=== PATIENT | female | born 1970 | race Hispanic/Latino ===

== ENCOUNTER 2024-03-09 21:34 | Emergency (ER) | payer OTHER, SELFPAY ==
--- NOTE | ~2024-03-09 | CT_ITS ---
EXAMINATION: CT brain wo con DATE: 03/09/2024 23:22 INDICATION: Head injury. TECHNIQUE: Computed tomography (CT) of the head was performed without intravenous contrast. The mA wa s adjusted according to patient size. Iterative reconstruction technique was employed. The dose-lengt h product was 605.33 mGy-cm. COMPARISON: None FINDINGS: There is no intracranial hemorrhage, acute infarction, or abnormal intracranial mass lesion . The ventricles are normal in size. The orbits are normal. There is mild mucosal thickening in the p aranasal sinuses. The mastoid air cells are normal. IMPRESSION: 1. Normal brain. Reviewed, dictated and finalized at location A. IMPRESSION: 1. Normal brain.
--- NOTE | ~2024-03-09 | CT_ITS ---
EXAMINATION: CT orbit BI wo con DATE: 03/10/2024 01:02 INDICATION: Right eye visual loss. Trauma. TECHNIQUE: Computed tomography (CT) of the orbits was performed without intravenous contrast. Automat ed exposure control and iterative reconstruction technique were employed. The dose-length product was 185.88 mGy-cm. COMPARISON: None FINDINGS: The ocular globes, extraocular muscles, and optic nerves are normal. There is no abnormal o rbital mass. There is mild mucosal thickening in the paranasal sinuses. There is rightward deviation of the nasal septum. The mastoid air cells are normal. There is a fracture deformity of left nasal miquel ne, likely chronic. IMPRESSION: 1. Normal orbits. Reviewed, dictated and finalized at location A. IMPRESSION: 1. Normal orbits.
--- NOTE | ~2024-03-09 | CT_ITS ---
EXAMINATION: CT cervical spine wo con DATE: 03/09/2024 23:23 INDICATION: Neck pain. Fall. TECHNIQUE: Computed tomography (CT) of the cervical spine was performed without intravenous contrast. Automated exposure control and iterative reconstruction technique were employed. The dose-length pro duct was 240.66 mGy-cm. COMPARISON: None FINDINGS: There is 3 degrees levocurvature of cervical spine. Vertebral body heights and intervertebr al disc heights are normal. The following disc levels are specifically discussed: C2-C3: There is mild bilateral uncovertebral joint osteoarthritis. There is moderate right and severe left facet joint osteoarthritis. There is mild left neural foraminal stenosis. There is no central c anal stenosis. C3-C4: There is mild bilateral uncovertebral joint osteoarthritis. There is mild right and severe lef t facet joint osteoarthritis. There is no neural foraminal stenosis. There is mild central canal sten osis. C4-C5: There is no uncovertebral joint osteoarthritis. There is no facet joint osteoarthritis. There is no neural foraminal stenosis. There is no central canal stenosis. C5-C6: There is no uncovertebral joint osteoarthritis. There is severe right facet joint osteoarthrit is. There is no neural foraminal stenosis. There is no central canal stenosis. C6-C7: There is no uncovertebral joint osteoarthritis. There is severe bilateral facet joint osteoart hritis. There is no neural foraminal stenosis. There is no central canal stenosis. C7-T1: There is no uncovertebral joint osteoarthritis. There is severe bilateral facet joint osteoart hritis. There is no neural foraminal stenosis. There is no central canal stenosis. IMPRESSION: 1. No fracture. 2. Mild cervical spondylosis. Reviewed, dictated and finalized at location A.
--- NOTE | ~2024-03-09 | CT_ITS ---
EXAMINATION: CTA brain carotid DATE: 03/10/2024 01:06 INDICATION: Right eye vision loss. Trauma. TECHNIQUE: Computed tomographic angiography (CTA) of the head was performed with 100 mL Omnipaque-350 intravenous contrast. CTA of the neck was performed with intravenous contrast. Automated exposure co ntrol and iterative reconstruction technique were employed. The dose-length product was 991.08 mGy-cm . Maximum intensity projection and volume rendered 3D-reconstructions were created by the [employer] t on a separate workstation. COMPARISON: Head CT 03/09/2024 FINDINGS: HEAD CTA: There is no intracranial hemorrhage, acute infarction, or abnormal intracranial mass lesion . The ventricles are normal in size. There is mild mucosal thickening in the paranasal sinuses. The o rbits are normal. There is a fracture deformity of left nasal bone, likely chronic. The mastoid air c ells are normal. Left vertebral artery is dominant. There is no significant stenosis of basilar arter y or the posterior cerebral arteries. There is no significant stenosis of the intracranial internal c arotid arteries or anterior or middle cerebral arteries. Anterior communicating artery is normal. The posterior communicating arteries are normal. There is no aneurysm. NECK CTA: The lungs demonstrate mild atelectasis. There are no pathologically enlarged lymph nodes. T here is no significant stenosis of the vertebral arteries. There is no significant plaque in the prox imal internal carotid arteries. There is 0% stenosis of the proximal right internal carotid artery re lative to normal distal artery lumen diameter (NASCET criteria). There is 0% stenosis of the proximal left internal carotid artery relative to normal distal artery lumen diameter. Dental disease is note d. There is mild cervical spondylosis. IMPRESSION: 1. Normal brain. No aneurysm or significant intracranial internal stenosis. 2. 0% stenosis of the proximal internal carotid arteries relative to normal distal artery lumen diame ters (NASCET criteria). Reviewed, dictated and finalized at location A. IMPRESSION: 1. Normal brain. No aneurysm or significant intracranial internal stenosis. 2. 0% stenosis of the proximal internal carotid arteries relative to normal dis hiwot artery lumen diameters (NASCET criteria).
[2024-03-09 21:36] VITALS: BP 151/59; PULSE 74; RESP 20; TEMP 36.8; O2SAT 98
--- NOTE | 2024-03-09 23:14 | PC.NURSE ---
care and report given to SAM Metcalf. all questions answered.
--- NOTE | 2024-03-09 23:46 | ED.FALL ---
HPI - Fall General Chief Complaint: Fall Stated Complaint: fall, eye injury Time Seen by Provider: 03/09/24 23:15 History of Present Illness HPI Narrative: Patient presents here after she had a fall when she tripped over a chair, hit the back of her head, and then noticed changes to vision to her right eye. She describes it as the blackness to the top of her field of vision, with reddish curtain through the rest of her vision with floaters. Related Data Allergies Allergy/AdvReac Type Severity Reaction Status Date / Time No Known Allergies Allergy Verified 03/09/24 21:43 Review of Systems Review of Systems: All systems reviewed & are unremarkable except as noted in HPI and below Exam Narrative: EXAMINATION OF ORGAN SYSTEMS/BODY AREAS: Constitutional: Vital signs per nursing GENERAL:[No acute distress, non-toxic appearing.] HEAD: Normal with no signs of head trauma. EYES: EOMI, conjunctiva normal, PERRL. VA left eye 20/50, right eye 20/100. IOP 14 bilaterally ENT: Hearing grossly intact LUNGS: Nonlabored breathing. HEART: [Regular rate and rhythm] ABD: No distension EXT: Normal range of motion SKIN: [No rashes or lesions.] NEURO: [Alert and oriented x 3. No gross focal sensory or strength deficits.] PSYCH: Normal affect Course Vital Signs Vital signs: Vital Signs Temperature 98.2 F 03/09/24 21:36 Pulse Rate 74 03/09/24 21:36 Respiratory Rate 20 03/09/24 21:36 Blood Pressure 151/59 H 03/09/24 21:36 Pulse Oximetry 98 03/09/24 21:36 Oxygen Delivery Room Air 03/09/24 21:36 Temperature 98.2 F 03/09/24 21:36 Pulse Rate 98 03/10/24 00:15 Respiratory Rate 15 03/10/24 00:15 Blood Pressure 138/82 03/10/24 00:15 Pulse Oximetry 98 03/10/24 00:15 Oxygen Delivery Room Air 03/09/24 21:36 MDM - Fall MDM Narrative Medical decision making narrative: 53-year-old female presenting with right eye vision loss after trauma, PMH includes history of insulin-dependent diabetes. CT head, C-spine negative for obvious abnormality, I am very concerned for possible retinal detachment/possible vitreous hemorrhage. I have let the patient and daughter know and they are agreeable to transfer for ophthalmology evaluation. [facility] contacted, case discussed with Dr Erick alexandra who recommends getting CTA here to r/o dissection and CT orbits. Ashley attending Dr Hannah. D/w Dr Mike AGUILAR who accepts patient. Lab Data 03/10/24 00:28 03/10/24 00:58 Labs: Lab Results 03/10/24 03/10/24 Range/Units 00:28 00:58 WBC 7.0 (4.5-10.0) K/mm3 RBC 4.52 (4.2-5.4) M/mm3 Hgb 13.5 (12.0-15.0) g/dL Hct 39.1 (37.0-47.0) % MCV 86.5 (80-100) fl MCH 29.9 (26-34) pg MCHC 34.5 (32-36) g/dl RDW 12.7 (11.5-14.5) % Plt Count 308 (150-375) k/mm3 MPV 11.2 H (7.4-10.4) fl Immature Gran % (Auto) 0.1 (0-0.5) % Neut % (Auto) 47.0 (45.5-73.1) % Lymph % (Auto) 42.3 (18.3-44.2) % [place] % (Auto) 5.7 (2.6-8.5) % Eos % (Auto) 4.2 (0-4.4) % Baso % (Auto) 0.7 (0.2-1.2) % Lymph # (Auto) 2.95 (0.9-3.2) K/mm3 [place] # (Auto) 0.4 (0.1-0.6) K/mm3 Eos # (Auto) 0.3 (0-0.3) K/mm3 Baso # (Auto) 0.1 (0.0-0.1) K/mm3 Abs Immat Gran (auto) 0.01 (0.00-0.031) K/mm3 Absolute Neuts (auto) 3.3 (1.3-6.7) K/mm3 Absolute Nucleated RBC 0.000 (0.0-0.012) K/mm3 Nucleated RBC % 0.0 (0.0-0.2) % Sodium 136 L (137-145) mmol/L Potassium 3.7 (3.4-5.0) mmol/L Chloride 98 (98-107) mmol/L Carbon Dioxide 27 (22-30) mmol/L Anion Gap 11 (4-12) mmol/L BUN 26 H (7-17) mg/dL Creatinine 0.70 0.70 (0.7-1.0) mg/dL Estim Creat Clear Calc 65 65 ml/min Estimated GFR > 60 > 60 (59 - ) Glucose 301 H (65-110) mg/dL Calcium 9.0 (8.4-10.2) mg/dL Critical Care Time Critical Care Time Critical Care Time: Yes Total Critical Care Time: 51 Discharge Plan Discharge Clinical Impression: Loss of visio
[2024-03-10 00:15] VITALS: BP 138/82; PULSE 98; RESP 15; O2SAT 98
[2024-03-10 00:34] LABS: Basophils Absolute Auto 0.1 K/mm3 (0.0-0.1); Basophils Percent Auto 0.7 % (0.2-1.2); Eosinophils Absolute Auto 0.3 K/mm3 (0-0.3); Eosinophils Percent Auto 4.2 % (0-4.4); Hematocrit 39.1 % (37.0-47.0); Hemoglobin 13.5 g/dL (12.0-15.0); Immature Granulocyte Absolute 0.01 K/mm3 (0.00-0.031); Immature Granulocyte Percent A 0.1 % (0-0.5); Lymphocytes Absolute Auto 2.95 K/mm3 (0.9-3.2); Lymphocytes Percent Auto 42.3 % (18.3-44.2); Mean Corpuscular HGB Conc 34.5 g/dl (32-36); Mean Corpuscular Hemoglobin 29.9 pg (26-34); Mean Corpuscular Volume 86.5 fl (80-100); Mean Platelet Volume 11.2 fl (7.4-10.4); Monocytes Absolute Auto 0.4 K/mm3 (0.1-0.6); Monocytes Percent Auto 5.7 % (2.6-8.5); Neutrophils Absolute Auto 3.3 K/mm3 (1.3-6.7); Platelet Count Result 308 k/mm3 (150-375); Red Blood Count 4.52 M/mm3 (4.2-5.4); Red Cell Distribution Width 12.7 % (11.5-14.5)
[2024-03-10 00:47] LABS: Anion Gap 11 mmol/L (4-12); Blood Urea Nitrogen 26 mg/dL (7-17); Carbon Dioxide 27 mmol/L (22-30); Chloride 98 mmol/L (98-107); Estimated CRCL calculation 65 ml/min; Estimated Glomerular Filt Rate > 60; Glucose 301 mg/dL (65-110); Potassium 3.7 mmol/L (3.4-5.0); Sodium 136 mmol/L (137-145)
[2024-03-10 01:00] LABS: Estimated CRCL calculation 65 ml/min; Estimated Glomerular Filt Rate > 60
[2024-03-10 02:03] VITALS: BP 144/82; PULSE 69; RESP 15; O2SAT 98
== END 2024-03-10 03:53 | disposition short-term general hospital (02) ==
PROVIDERS: Emergency Provider Emergency Medicine
DX: S09.90XA Unspecified injury of head, initial encounter (principal); H54.7 Unspecified visual loss; E11.9 Type 2 diabetes mellitus without complications; W18.09XA Striking against other object with subsequent fall, initial encounter; M47.812 Spondylosis without myelopathy or radiculopathy, cervical region
CPT/HCPCS: 36415; 70450; 70480; 70496; 70498; 72125; 80048; 85025; 99285; Q9967

== ENCOUNTER 2025-06-23 14:12 | Emergency (ER) | payer SELFPAY ==
--- NOTE | ~2025-06-23 | XR_ITS ---
EXAMINATION: XR chest 2V, 06/23/2025 14:35 TELEGRAPH MECHANIC HISTORY: /NAUSEA/HEADACHE/DIZZINESS COMPARISON: No comparisons available. Technique: 2 views obtained. Findings: The lungs are clear, no effusion. No pneumothorax. Heart is normal size. Mediastinal and hilar contours are within normal limits. Bony thorax no acute abnormality. Impression: No acute cardiopulmonary abnormality. Reviewed, dictated and finalized at location P. GRAPH MECHANIC Impression: No acute cardiopulmonary abnormality.
--- NOTE | ~2025-06-23 | CT_ITS ---
EXAMINATION: CT brain wo chandrakant, 06/23/2025 14:40 MESS ATTENDANT CREW HISTORY: dizziness COMPARISON: No comparisons available. Technique: Axial images obtained of the brain without contrast. One or more of the following dose reduction techniques were used: automated exposure control, adjustment of the mA and/or kV according to patient size, use of iterative reconstruction technique. Findings: No acute infarct or parenchymal hemorrhage. No abnormal mass or mass effect. No midline shift. No extra-axial fluid collections. No hydrocephalus. Mastoid air cells unremarkable. Sinuses and orbits unremarkable. No acute fracture. No significant facial or scalp soft tissue swelling evident. No radiopaque foreign body is seen. Impression: 1.No acute intracranial abnormality. Reviewed, dictated and finalized at location P. ATTENDANT CREW Impression: 1.No acute intracranial abnormality.
[2025-06-23 14:29] VITALS: BP 141/67; PULSE 69; RESP 20; TEMP 36.4; O2SAT 99
--- NOTE | 2025-06-23 14:33 | ECG_ITS ---
Test Date: 2025-06-23 14:37:01 Measurements Intervals [place] Rate: 71 P: 44 TX: 135 QRS: 50 QRSD: 76 T: 52 QT: 400 QTc: 435 Interpretive Statements SINUS RHYTHM NORMAL ELECTROCARDIOGRAM No previous ECG available for comparison Electronically Signed On 06-23-2025 17:35:27 [employer] ADMISSIONS REPRESENTATIVE by Wade Kraft M.D.
--- NOTE | 2025-06-23 14:33 | ED_ITS ---
HPI - Dizziness General Chief Complaint: Dizziness <Fela Arroyo PA-C - Last Filed: 06/23/25 18:53> Stated Complaint: DIZZINESS,NAUSEA, BLD SUGAR 318 <Fela Arroyo PA-C - Last Filed: 06/23/25 18:53> Time Seen by Provider: 06/23/25 14:33 <Fela Arroyo PA-C - Last Filed: 06/23/25 18:53> Focused HPI: This is a 55 year old female that presents to the ER for dizziness. Reports associated nausea, headache. Ongoing since this morning. Denies chest pain or shortness of breath. GENERAL: Well-appearing, well-nourished, and in no acute distress. HEAD: Normocephalic, atraumatic. CHEST: Clear to auscultation. ?No respiratory distress. HEART: Regular rate and rhythm.? NEURO: ?Alert and oriented x3. Patient screened in triage and initial orders placed.? ?Additional care and disposition to be based upon?diagnostic testing and treatment. <Fela Arroyo PA-C - Last Filed: 06/23/25 18:53> History of Present Illness HPI Narrative: I agree with the above HPI <Negro Ruiz MD - Last Filed: 06/23/25 18:59> Related Data Allergies/Adverse Reactions: Allergies Allergy/AdvReac Type Severity Reaction Status Date / Time No Known Allergies Allergy Verified 06/23/25 14:13 <Fela Arroyo PA-C - Last Filed: 06/23/25 18:53> Review of Systems 2 Review of Systems: All systems reviewed & are unremarkable except as noted in HPI and below <Fela Arroyo PA-C - Last Filed: 06/23/25 18:53> All systems reviewed & are unremarkable except as noted in HPI and below < Negro Ruiz MD - Last Filed: 06/23/25 18:59> Exam 2 Narrative: APPEARANCE: Well appearing, no pain, no distress, well-nourished. HEAD: normocephalic, atraumatic. EYES: PERRLA/EOMI, conjunctivae clear. NOSE: Normal no drainage EARS:TMS clear with good light reflex. THROAT: Pharynx clear, no exudate. NECK: Supple. No adenopathy, no masses. RESPIRATORY: Airway patent, respirations nonlabored. Clear to auscultation bilaterally, no rales, rhonchi, wheezing. CARDIOVASCULAR: Regular rate and rhythm without murmurs rubs or gallops. ABDOMINAL: Soft, nontender, nondistended, normal bowel sounds MUSCULOSKELETAL: Moves all extremities. Strength/ROM intact, No edema, No calf tenderness. NEURO: Alert. Cranial nerves II through XII intact. Good gait. Good coordination SKIN: Warm, dry. Normal Color <Negro Ruiz MD - Last Filed: 06/23/25 18:59> Course Vital Signs Vital signs: Vital Signs Temperature 97.6 F 06/23/25 14:29 Pulse Rate 69 06/23/25 14:29 Respiratory Rate 20 06/23/25 14:29 Blood Pressure 141/67 H 06/23/25 14:29 Pulse Oximetry 99 06/23/25 14:29 Oxygen Delivery Room Air 06/23/25 14:29 Temperature 97.6 F 06/23/25 14:29 Pulse Rate 69 06/23/25 17:22 Respiratory Rate 15 06/23/25 17:22 Blood Pressure 120/53 L 06/23/25 17:22 Pulse Oximetry 99 06/23/25 17:22 Oxygen Delivery Room Air 06/23/25 16:08 <Fela Arroyo PA-C - Last Filed: 06/23/25 18:53> Vital Signs Temperature 97.6 F 06/23/25 14:29 Pulse Rate 69 06/23/25 14:29 Respiratory Rate 20 06/23/25 14:29 Blood Pressure 141/67 H 06/23/25 14:29 Pulse Oximetry 99 06/23/25 14:29 Oxygen Delivery Room Air 06/23/25 14:29 Temperature 97.6 F 06/23/25 14:29 Pulse Rate 69 06/23/25 17:22 Respiratory Rate 15 06/23/25 17:22 Blood Pressure 120/53 L 06/23/25 17:22 Pulse Oximetry 99 06/23/25 17:22 Oxygen Delivery Room Air 06/23/25 16:08 <Negro Ruiz MD - Last Filed: 06/23/25 18:59> MDM - Dizziness MDM Narrative Medical decision making narrative: 55-year-old female present to the emergency department for evaluation for hyperglycemia and dehydration associated dizziness. Patient reports she has been out of her metformin and has been unable to get it filled by her primary care physician. Patient was treated with 2 L of lactated Ringer's, 5 units of IV insulin. Patient's blood sugar did improve but patient did feel significantly better. Patient was provided outpatient refill for her metformin. Patient was encouraged of close follow-up with her primary care physician. All questions concerns were addressed patient was comfortable with the plan for discharge and close follow-up. Head CT was ordered due to the onset of dizziness but head CT was negative and dizziness was resolved with rehydration. Patient's chest x-ray showed no acute cardiopulmonary abnormality. <Negro Ruiz MD - Last Filed: 06/23/25 18:59> Differential Diagnosis Differential diagnosis: Likely adverse reaction to drug, benign paroxysmal positional vertigo and orthostatic hypotension <Negro Ruiz MD - Last Filed: 06/23/25 18:59> Lab Data Attestation: I reviewed the patient's lab results. <Negro Ruiz MD - Last Filed: 06/23/25 18:59> Result diagrams: 06/23/25 14:42 06/23/25 14:42 <Fela Arroyo PA-C - Last Filed: 06/23/25 18:53> Labs: Lab Results 06/23/25 06/23/25 06/23/25 Range/Units 14:42 17:30 18:27 WBC 9.8 (4.5-10.0) K/mm3 RBC 4.60 (4.2-5.4) M/mm3 Hgb 13.6 (12.0-15.0) g/dL Hct 40.0 (37.0-47.0) % MCV 87.0 (80-100) fl MCH 29.6 (26-34) pg MCHC 34.0 (32-36) g/dl RDW 12.2 (11.5-14.5) % Plt Count 305 (150-375) k/mm3 MPV 11.2 H (7.4-10.4) fl Immature Gran % (Auto) 0.5 (0-0.5) % Neut % (Auto) 73.5 H (45.5-73.1) % Lymph % (Auto) 19.1 (18.3-44.2) % [place] % (Auto) 4.0 (2.6-8.5) % Eos % (Auto) 2.3 (0-4.4) % Baso % (Auto) 0.6 (0.2-1.2) % Lymph # (Auto) 1.86 (0.9-3.2) K/mm3 [place] # (Auto) 0.4 (0.1-0.6) K/mm3 Eos # (Auto) 0.2 (0-0.3) K/mm3 Baso # (Auto) 0.1 (0.0-0.1) K/mm3 Abs Immat Gran (auto) 0.05 H (0.00-0.031) K/mm3 Absolute Neuts (auto) 7.2 H (1.3-6.7) K/mm3 Absolute Nucleated RBC 0.000 (0.0-0.012) K/mm3 Nucleated RBC % 0.0 (0.0-0.2) % Sodium 137 (137-145) mmol/L Potassium 4.3 (3.4-5.0) mmol/L Chloride 104 (98-107) mmol/L Carbon Dioxide 24 (22-30) mmol/L Anion Gap 9 (4-12) mmol/L BUN 26 H (7-17) mg/dL Creatinine 0.80 (0.7-1.0) mg/dL Estim Creat Clear Calc 62 ml/min Estimated GFR > 60 (59 - ) Glucose 321 H (65-110) mg/dL POC Capillary Glucose 355 H 194 H (65-105) mg/dl Hemoglobin A1c 10.5 H (<5.7) % Calcium 9.3 (8.4-10.2) mg/dL Total Bilirubin 0.5 (0.2-1.3) mg/dL AST 33 (14-36) U/L ALT 22 (6-35) U/L Alkaline Phosphatase 119 (38-126) U/L Total Protein 8.3 H (6.3-8.2) g/dL Albumin 4.5 (3.5-5.1) g/dL Urine Color Yellow (Yellow) Urine Appearance Clear (Clear) Urine pH 5.0 (5.0-9.0) Ur Specific [place] 1.025 (1.001-1.035) Urine Protein 3+ H (Negative) mg/dL Urine Glucose (UA) 3+ H (Negative) mg/dL Urine Ketones Trace H (Negative) mg/dL Ur Blood (Man) Negative (Negative) Urine Nitrate Negative (Negative) Urine Bilirubin Negative (Negative) Urine Urobilinogen 1.0 (<2.0) mg/dL Add Ur Microanalysis Reviewed Leukocyte Esterase Rfl Negative (Negative) [place]/UL Urine RBC 0-2 (0-2) /hpf Urine WBC 6-10 H (0-3) /hpf Ur Squamous Epith Cells Occasional (Few) /hpf Urine Bacteria None seen /hpf Urine Casts >20 Hyaline Casts Present (None) /lpf Urine Mucus Present /lpf <Fela Arroyo PA-C - Last Filed: 06/23/25 18:53> Lab Results 06/23/25 06/23/25 06/23/25 Range/Units 14:42 17:30 18:27 WBC 9.8 (4.5-10.0) K/mm3 RBC 4.60 (4.2-5.4) M/mm3 Hgb 13.6 (12.0-15.0) g/dL Hct 40.0 (37.0-47.0) % MCV 87.0 (80-100) fl MCH 29.6 (26-34) pg MCHC 34.0 (32-36) g/dl RDW 12.2 (11.5-14.5) % Plt Count 305 (150-375) k/mm3 MPV 11.2 H (7.4-10.4) fl Immature Gran % (Auto) 0.5 (0-0.5) % Neut % (Auto) 73.5 H (45.5-73.1) % Lymph % (Auto) 19.1 (18.3-44.2) % Power % (Auto) 4.0 (2.6-8.5) % Eos % (Auto) 2.3 (0-4.4) % Baso % (Auto) 0.6 (0.2-1.2) % Lymph # (Auto) 1.86 (0.9-3.2) K/mm3 [place] # (Auto) 0.4 (0.1-0.6) K/mm3 Eos # (Auto) 0.2 (0-0.3) K/mm3 Baso # (Auto) 0.1 (0.0-0.1) K/mm3 Abs Immat Gran (auto) 0.05 H (0.00-0.031) K/mm3 Absolute Neuts (auto) 7.2 H (1.3-6.7) K/mm3 Absolute Nucleated RBC 0.000 (0.0-0.012) K/mm3 Nucleated RBC % 0.0 (0.0-0.2) % Sodium 137 (137-145) mmol/L Potassium 4.3 (3.4-5.0) mmol/L Chloride 104 (98-107) mmol/L Carbon Dioxide 24 (22-30) mmol/L Anion Gap 9 (4-12) mmol/L BUN 26 H (7-17) mg/dL Creatinine 0.80 (0.7-1.0) mg/dL Estim Creat Clear Calc 62 ml/min Estimated GFR > 60 (59 - ) Glucose 321 H (65-110) mg/dL POC Capillary Glucose 355 H 194 H (65-105) mg/dl Hemoglobin A1c 10.5 H (<5.7) % Calcium 9.3 (8.4-10.2) mg/dL Total Bilirubin 0.5 (0.2-1.3) mg/dL AST 33 (14-36) U/L ALT 22 (6-35) U/L Alkaline Phosphatase 119 (38-126) U/L Total Protein 8.3 H (6.3-8.2) g/dL Albumin 4.5 (3.5-5.1) g/dL Urine Color Yellow (Yellow) Urine Appearance Clear (Clear) Urine pH 5.0 (5.0-9.0) Ur Specific [place] 1.025 (1.001-1.035) Urine Protein 3+ H (Negative) mg/dL Urine Glucose (UA) 3+ H (Negative) mg/dL Urine Ketones Trace H (Negative) mg/dL Ur Blood (Man) Negative (Negative) Urine Nitrate Negative (Negative) Urine Bilirubin Negative (Negative) Urine Urobilinogen 1.0 (<2.0) mg/dL Add Ur Microanalysis Reviewed Leukocyte Esterase Rfl Negative (Negative) [place]/UL Urine RBC 0-2 (0-2) /hpf Urine WBC 6-10 H (0-3) /hpf Ur Squamous Epith Cells Occasional (Few) /hpf Urine Bacteria None seen /hpf Urine Casts >20 Hyaline Casts Present (None) /lpf Urine Mucus Present /lpf <Negro Ruiz MD - Last Filed: 06/23/25 18:59> Imaging Data Radiologist's impression: ITS Impressions Head CT 06/23/25 14:58 Impression: 1.No acute intracranial abnormality. Chest X-Ray 06/23/25 15:00 Impression: No acute cardiopulmonary abnormality. <Fela Arroyo PA-C - Last Filed: 06/23/25 18:53> Impressions Head CT 06/23/25 14:58 Impression: 1.No acute intracranial abnormality. Chest X-Ray 06/23/25 15:00 Impression: No acute cardiopulmonary abnormality. <Negro Ruiz MD - Last Filed: 06/23/25 18:59> Discharge Plan Discharge Clinical Impression: Hyperglycemia, Medication refill <Fela Arroyo PA-C - Last Filed: 06/23/25 18:53> Patient Disposition: Home <Fela Arroyo PA-C - Last Filed: 06/23/25 18:53> Condition: Stable <Fela Arroyo PA-C - Last Filed: 06/23/25 18:53> Instructions: Antibiotic Form, Diabetic Hyperglycemia (ED) <Fela Arroyo PA-C - Last Filed: 06/23/25 18:53> Additional Instructions: Follow a diabetic low carb diet. Take your metformin as directed. Drink plenty of water. Have close follow-up with your primary care physician. <Fela Arroyo PA-C - Last Filed: 06/23/25 18:53> Patient Language: Wolof <Fela Arroyo PA-C - Last Filed: 06/23/25 18:53> Prescriptions: New metformin 500 mg tablet 500 mg PO BID 30 Days Qty: 60 0RF <Fela Arroyo PA-C - Last Filed: 06/23/25 18:53> Follow-up/Referrals: UNKNOWN,DOCTOR [Primary Care Provider] <Fela Arroyo PA-C - Last Filed: 06/23/25 18:53>
[2025-06-23 14:51] LABS: Hematocrit 40.0 % (37.0-47.0); Hemoglobin 13.6 g/dL (12.0-15.0); Immature Granulocyte Percent A 0.5 % (0-0.5); Lymphocytes Absolute Auto 1.86 K/mm3 (0.9-3.2); Mean Corpuscular HGB Conc 34.0 g/dl (32-36); Mean Corpuscular Hemoglobin 29.6 pg (26-34); Mean Corpuscular Volume 87.0 fl (80-100); Nucleated Red Blood Cells Absolute Auto 0.000 K/mm3 (0.0-0.012); Nucleated Red Blood Cells Perc 0.0 % (0.0-0.2); Platelet Count Result 305 k/mm3 (150-375); Red Blood Count 4.60 M/mm3 (4.2-5.4); White Blood Count 9.8 K/mm3 (4.5-10.0)
[2025-06-23 15:01] LABS: Alanine Aminotransferase 22 U/L (6-35); Albumin Level 4.5 g/dL (3.5-5.1); Alkaline Phosphatase 119 U/L (38-126); Anion Gap 9 mmol/L (4-12); Aspartate Amino Transferase 33 U/L (14-36); Bilirubin,Total 0.5 mg/dL (0.2-1.3); Blood Urea Nitrogen 26 mg/dL (7-17); Calcium 9.3 mg/dL (8.4-10.2); Carbon Dioxide 24 mmol/L (22-30); Chloride 104 mmol/L (98-107); Estimated CRCL calculation 62 ml/min; Estimated Glomerular Filt Rate > 60; Glucose 321 mg/dL (65-110); Potassium 4.3 mmol/L (3.4-5.0); Sodium 137 mmol/L (137-145); Total Protein 8.3 g/dL (6.3-8.2)
[2025-06-23 15:11] LABS: Add Urine Microscopic? YES; Appearance Urine Clear (Clear); Glucose Urine UA 3+ mg/dL (Negative); Leukocyte Esterase Ur Negative LEU/UL (Negative); Need Manual Microscopic Reviewed; Nitrate Urine Negative (Negative); Non Pathogenic Casts >20; Specific Grav Ur 1.025 (1.001-1.035)
--- OUTSIDE RECORDS SUMMARY | 2025-06-23 16:05 | XMS_ITS | Clinical Summary ---
Author Organization [facility] Address [address] [place] [address] Care Team Providers Care Director Cloud Transformation Name Role Phone Unknown, Provider Primary Care Provider Unavaila ble Source Comments [facility],non-owned Affiliates and Associated Physician Practices is amultiple site organization consisting of ambulatory clinics and hospital sitesin [place], [place], [place] and [place]. This disclosure is being madepursuant to the Care Everywhere program and may not contain all information available regarding this patient. Last updated 18.[facility] Allergies No known active allergies Medications * Be aware that medications may not be up to date on this document. Alwaysverify current medications with the patient. atorvastatin (LIPITOR) 40 MG tabletIndicati ons:Type 2 diabetes mellitus with hyperglycemia, with long-term current use of insulin ([facility]) Take 1 (one) tablet by mouth once daily Active metFORMIN ER 24hr (GLUCOPHAGE XR) 500MG tabletIndicati ons:Type 2 diabetes mellitus with hyperglycemia, with long-term current use of insulin ([facility]) Take 1 tablet by mouth twice daily, before 1 meal & at bedtime. 180 tablet 3 8 Active insulin detemir (LEVEMIR) vialIndication s:Type 2 diabetes mellitus with hyperglycemia, with long-term current use of insulin ([facility]) Inject 50 Units subcutaneously at bedtime 5 vial 3 8 Active linaGLIPtin (TRADJENTA) 5 MG tabletIndicati ons:Type 2 diabetes mellitus with hyperglycemia, with long-term current use of insulin ([facility]) Take 1 tablet by mouth once daily 90 tablet 3 8 Active Active Problems Problem Noted Date Diagnosed Date Type 2 diabetes mellitus wit h hyperglycemia, with long-term current use of insulin 12/19/2017 Pure hypercholesterolemia 12/19/2017 Family History Medical History Relation Name Comments Alcohol abuse Father Diabetes - Gestational Maternal Grandmother Alcohol abuse Paternal Aunt Alcohol abuse Sister Diabetes - Gestational Sister Hypertension Sister Relation Name Status Comments Father Maternal Grandmother Paternal Aunt Sister Alive Social History Tobacco Use Types Packs/Day Years Used Date Smoking Tobacco: Never Smokeless Tobacco: Never Alcohol Use Standard Drinks/Week Comments Yes 2 (1 standard drink = 0.6 oz pur e alcohol) 2 drinks monthly Comments Unknown Sex and Gender Information Value Date Recorded Sex Assigned at Not on file Legal Sex Female 5:47 PM CDT Gender Identity Not on file Sexual Orientation Not on file Last Filed Vital Signs Vital Sign Reading Time Taken Comments Blood Pressure 116/71 03/10/2024 10:30 AM CDT Pulse 73 03/10/2024 4:37 AM CDT Temperature 36.5 C (97.7 F) 03/10/2024 4:37 AM CDT Respiratory Rate 16 03/10/2024 4:37 AM CDT Oxygen Saturation 97% 03/10/2024 10:30 AM CDT Inhaled Oxygen Concentration - - Weight 61.7 kg (136 lb) 03/10/2024 4:37 AM CDT Height 152.4 cm (5') 03/10/2024 4:37 AM CDT Body Mass Index 26.56 03/10/2024 4:37 AM CDT Plan of Treatment Health Maintenance Due Date Last Done Comments COLOGUARD (AGES 45-75) - COLON CA SCREENING 1969 COLON MONITORING 1969 COLONOSCOPY - COLON CA SCREENING 1969 CT COLONOGRAPHY - COLON CA SCREENING 1969 Colorectal Cancer Screening 1969 FIT - COLON CA SCREENING 1969 FLEX SIG - COLON CA SCREENING 1969 HIV SCREENING 1984 HEPATITIS C SCREENING 04/15/1987 DTAP/TDAP/TD VACCINES (1 - Tdap) 1988 HEPATITIS B VACCINE (1 of 3 - 19+ 3-dose series) 1988 PNEUMOCOCCAL VACCINE 50+ (1 of 2 - PCV) 1988 Cervical Cancer Screening 1990 PAP SMEAR 1990 PAP with HPV 1999 DIABETES-HGB A1C 12/19/2017 DIABETES-FOOT EXAM WITH MONOFILAMENT 12/19/2018 12/19/2017, 12/19/2017 ZOSTER VACCINE (1 of 2) 2019 DEPRESSION SCREENING 07/30/2024 DIABETES - URINE PROTEIN SCREENING 07/30/2024 MAMMOGRAM 02/27/2025 02/27/2023 DIABETES-SERUM CREATININE 03/10/2025 03/10/2024 COVID-19 VACCINE (3 - season) 2025 12/17/2020, 11/26/2020 INFLUENZA VACCINE (#1) 2025 04/26/2017, 2015 DIABETES RETINOPATHY SCREENING 06/11/2025 06/11/2024, 05/28/2024, 05/23/2024, Additional history exists HIB VACCINE Aged Out No longer eligi ble based on patient's age to complete this topic HPV VACCINE Aged Out No longer eligi ble based on patient's age to complete this topic MENINGOCOCCAL (Group B) VACCINE SHARED DECISION-MAKING Aged Out No longer eligible based on patient's age to complete this topic MENINGOCOCCAL GROUPS A/C/Y/W VACCINE Aged Out No longer eligible based on patient's age to complete this topic Procedures Procedure Name Priority Date/Time Associated Diagnosis Comments COMPREHENSIVE METABOLIC PANEL STAT 03/10/2024 8:35 AM CDT from Last 3 Months or Most Recently Relevant to Health Maintenance Results * (ABNORMAL) COMPREHENSIVE METABOLIC PANEL (03/10/2024 8:35 AM CDT) BUN 19 7 - 26 mg/dL 03/10/2024 9:06 AM [facility] Creatinine 0.55(L) 0.56 - 0.96 mg/dL 03/10/2024 9:06 AM [facility] Sodium 139 136 - 145 mmol/L 03/10/2024 9:06 AM [facility] Potassium 3.9 3.5 - 4.5 mmol/L 03/10/2024 9:06 AM [facility] Chloride 108(H) 98 - 107 mmol/L 03/10/2024 9:06 AM [facility] CO2 23 22 - 29 mmol/L 03/10/2024 9:06 AM [facility] Glucose 208(H) 70 - 115 mg/dL 03/10/2024 9:06 AM [facility] Calcium 8.8 8.4 - 10.2 mg/dL 03/10/2024 9:06 AM [facility] Protein Total 7.0 6.0 - 8.3 g/dL 03/10/2024 9:06 AM [facility] Albumin 3.6 3.4 - 5.0 g/dL 03/10/2024 9:06 AM [facility] Bilirubin Total 0.3 0.2 - 1.2 mg/dL 03/10/2024 9:06 AM [facility] Alkaline Phosphatase 99 40 - 150 U/L 03/10/2024 9:06 AM [facility] ALT 11 5 - 55 U/L 03/10/2024 9:06 AM [facility] AST 14 5 - 34 U/L 03/10/2024 9:06 AM [facility] Anion Gap 8 6 - 16 03/10/2024 9:06 AM [facility] BUN/Creatinine Ratio 35(H) 7 - 23 03/10/2024 9:06 AM [facility] Osmolality Calculated 296(H) 275 - 295 mOsm/kg 03/10/2024 9:06 AM [facility] Albumin/Globulin Ratio 1.1 1.1 - 2.3 03/10/2024 9:06 AM [facility] eGFR by CKD-EPI >90 >=90 mL/min/1.7 3 m2 03/10/2024 9:06 AM [facility] Blood BLOOD SPECIMEN / Unknown Venipuncture / Unknown 03/10/2024 8:35 AM [facility] 03/10/2024 8:41 AM [facility] us Orlando Santiago MD LAB - CHEMISTRY ORDERABLES Fin al Result [facility] [address] [place] [address] [phone] from Last 3 Months or Most Recently Relevant to Health Maintenance Insurance [facility] Care Teams Director Cloud Transformation Relationship Specialty Start Date End Date Unknown, Provider PCP - General 12/19/17
--- OUTSIDE RECORDS SUMMARY | 2025-06-23 16:05 | XMS_ITS | Data Portability ---
[facility] [address] [place] [address] Assessment Encounter Date Assessment Date Assessment LastModified by Organization Details LastModified Time 04/16/2024 04/16/2024 injecting 40 units Not available 04/16/2024 16:15:40 07/15/2024 07/15/2024 injecting 40 units Not available 07/15/2024 16:00:33 09/30/2024 09/30/2024 patient yelled at me the entire visit about her insulin not being called in despite showing her on the computer that it was called in within 2 hours of her message recorded on portal. She states pharmacy did not have it. she never brought in her BG as asked at every visit last year. Since I could not get many words in and could not continue appointment I ended appointment after 15-20 minutes. I notified her if she is unhappy she can find new provider. Not available 09/30/2024 09:50:40 Plan of Treatment Reminders Order Date Submit Date Provider Last Modified By Organization Details Last Modified Time Details Appointments ANY 15 2024 04:15P M CAROLYN POTTER NP Not available Not available Not available Lab glucose, fingersti ck, blood 2024 025 [email or web address] In-Office Order, Internal Use Only DO Not Attach Compendium DO Not Attach Compendium, Do Not Delete/merge, [id number] 01/27/2025 14:06:12 HbA1c (hemoglob in A1c), blood 2024 025 [facility], [address], [address], [place], [address], 01/28/2025 06:19:20 albumin/c reatinine , mass ratio, urine 2024 025 [facility], [address] [facility] [address] [facility] [address], [address], [place], [address], 01/28/2025 11:12:54 lipid panel, serum 2024 025 [facility], [address], [place], [address], 01/28/2025 11:12:55 HbA1c (hemoglob in A1c), blood 2024 025 In-Office Order, Internal Use Only DO Not Attach Compendium DO Not Attach Compendium, Do Not Delete/merge, 09/30/2024 09:15:20 glucose, fingersti ck, blood 2024 025 REILLY In-Office Order, Internal Use Only DO Not Attach Compendium DO Not Attach Compendium, Do Not Delete/merge, 09/30/2024 09:52:25 HbA1c (hemoglob in A1c), blood 2023 024 REILLY In-Office Order, Internal Use Only DO Not Attach Compendium DO Not Attach Compendium, Do Not Delete/merge, 07/15/2024 16:19:33 glucose, fingersti ck, blood 2023 024 REILLY In-Office Order, Internal Use Only DO Not Attach Compendium DO Not Attach Compendium, Do Not Delete/merge, 07/15/2024 16:19:50 HbA1c (hemoglob in A1c), blood 2023 024 In-Office Order, Internal Use Only DO Not Attach Compendium DO Not Attach Compendium, Do Not Delete/merge, 04/17/2024 09:05:09 HbA1c (hemoglob in A1c), blood 2023 024 In-Office Order, Internal Use Only DO Not Attach Compendium DO Not Attach Compendium, Do Not Delete/merge, [id number] 02/27/2024 16:10:31 CMP, serum or plasma 2023 024 [facility], [address], [address], [place], [address], 02/29/2024 11:17:25 lipid panel, serum 2023 024 [facility], [address], [address], [place], [address], 02/29/2024 11:17:25 albumin/c reatinine , mass ratio, urine 2023 024 [facility], [address] [place] [address], [address], [place], [address], 02/28/2024 08:29:23 Referral cardiolog ist referral 2023 024 REILLY Rodriguez MD, [address] [facility], [address], [address], 07/24/2024 09:03:17 physical therapist referral 2023 024 [facility], [address] [place], [address], 07/16/2024 16:10:39 diabetic ophthalmo logy referral [email or web address], [address], [place], [address], 02/27/2024 16:23:11 Procedures None recorded. Surgeries None recorded. Imaging XR, shoulder, 2 or more view [email or web address] [place] [address] (Rad), [address] [place], [address], 08/12/2024 08:02:42 MAMMO, screening , bilateral 2023 024 [email or web address] Not available 03/26/2024 07:53:54 Medication Orders atorvasta tin 40 mg tablet 2024 025 [facility], [address] [place] [address], [id number], 01/27/2025 15:03:46 Farxiga 10 mg tablet 2024 025 [facility], [address] [place] [address], [id number], 03/03/2025 15:29:37 Levemir U-100 Insulin 100 unit/mL subcutane ous solution 2024 025 [facility], [address] [place] [address], [id number], 01/27/2025 15:03:47 aspirin 81 mg chewable tablet 2024 025 [facility], [address] [place] [address], [id number], 01/27/2025 14:23:38 atorvasta tin 40 mg tablet 2024 025 [facility], [address] [place] [address], [id number], 09/30/2024 14:11:16 Farxiga 10 mg tablet 2024 025 [facility] [address], [facility] [place], [address], 09/30/2024 16:15:57 Lantus Solostar U-100 Insulin 100 unit/mL (3 mL) subcutane ous pen 2024 025 [facility] [address], [address] [place], [address], 01/27/2025 14:09:00 aspirin 81 mg chewable tablet 2023 024 [facility], [address] [place] [address], [id number], 01/27/2025 14:06:52 atorvasta tin 40 mg tablet 2023 024 [facility], [address] [place] [address], [id number], 03/03/2025 18:05:33 Farxiga 10 mg tablet 2023 024 [facility], [address] [place] [address], [id number], 07/15/2024 16:28:02 Levemir U-100 Insulin 100 unit/mL subcutane ous solution 2023 024 [facility], [address] [place] [address], [id number], 04/16/2024 16:33:49 aspirin 81 mg chewable tablet 2023 024 [facility], [address] [place] [address], [id number], 01/27/2025 14:06:52 atorvasta tin 40 mg tablet 2023 024 [facility], [address] [place] [address], [id number], 04/16/2024 17:18:56 Farxiga 10 mg tablet [address], [address] [place] [address], [id number], 04/17/2024 08:50:38 Farxiga 10 mg tablet 2023 024 [facility], [address] [place], [place], [id number], 03/03/2024 17:36:30 Levemir U-100 Insulin 100 unit/mL subcutane ous solution [address] [facility], [address] [place], [place], [id number], 06/27/2024 16:41:08 atorvasta tin 40 mg tablet [address] [facility], [address] [place], [place], [id number], 06/27/2024 16:41:10 Patient TargetsNo targets recorded. Patient Instructions Encounter Date Encounter Id Patient Instructions Last Modified By Organization Details Last Modified Time 02/27/2024 [id number] A healthy lifestyle: care instructions Not available 02/27/2024 16:10:31 A healthy lifestyle: care instructions Not available 02/27/2024 16:10:51 09/30/2024 [id number] A healthy lifestyle: care instructions Not available 09/30/2024 09:50:58 01/27/2025 [id number] A healthy lifestyle: care instructions [email or web address] Not available 01/27/2025 14:06:12 A healthy lifestyle: care instructions [email or web address] Not available 01/27/2025 14:06:12 Reason for Referral Diabetic Ophthalmology Refer ral for Uncontrolled type 2 diabetes mellitus Referring Physician: Tracy Soria Pallet Assembler, Encounter Date: 02/27/2024 Physical Therapist Referral for Pain of right shoulder joint Referring Physician: [facility], Encounter Date: 07/15/2024 Multi Slide Machine Tender Referral for He art murmur Referring Physician: Tracy Soria Pallet Assembler, Encounter Date: 07/15/2024 Results Created Date Observation Date Name Description Value Unit Range Abnormal Flag Note LastModifiedBy Organization Detail LastModifiedTime 02/27/20 24 02/28/2024 ALBUM IN/CR EATIN INE RATIO ,URIN E creatinine, urine 38.2 mg/dL notest ab. Not Available [facility] ([facility]) [address] [facility] [place], [address], 02/28/2024 08:29:23 02/27/20 24 02/28/2024 ALBUM IN/CR EATIN INE RATIO ,URIN E albumin, urine 114.8 ug/mL notest ab. Not Available [facility] ([facility]) [address] [facility] [place], [address], 02/28/2024 08:29:23 02/27/20 24 02/28/2024 ALBUM IN/CR EATIN INE RATIO ,URIN E alb/creat ratio 301 mg/g_ creat 0-29 above high normal Aide l: 0 - 29 Moder ately incre ased: 30 - 300 Sever shana incre ased: >300 Not Available [facility] ([facility]) [address] [place], [address], 02/28/2024 08:29:23 02/27/20 24 02/29/2024 LIPID PANEL cholesterol, total 221 mg/dL 100-19 9 above high normal Not Available [facility] ([facility]) [address] [facility], [place], [address], 02/29/2024 11:17:25 02/27/20 24 02/29/2024 LIPID PANEL triglyceride s 357 mg/dL 0-149 above high normal Not Available [facility] ([facility]) [address] [place], [address], 02/29/2024 11:17:25 02/27/20 24 02/29/2024 LIPID PANEL HDL cholesterol 39 mg/dL >39 below low normal Not Available [facility] ([facility]) [address] [place], [address], 02/29/2024 11:17:25 02/27/20 24 02/29/2024 LIPID PANEL VLDL cholesterol christ 63 mg/dL 5-40 above high normal Not Available [facility] ([facility]) [address] [facility], [place], [address], 02/29/2024 11:17:25 02/27/20 24 02/29/2024 LIPID PANEL LDL chol calc ([facility]) 119 mg/dL 0-99 above high normal Not Available [facility] ([facility]) [address] [facility], [place], [address], 02/29/2024 11:17:25 02/27/20 24 02/29/2024 COMP. METAB OLIC PANEL (14) glucose 520 mg/dL 70-99 panic high Rimma ified by haresh keating holland sis Not Available [facility] ([facility]) [address] [facility], [place], [address], 02/29/2024 11:17:25 02/27/20 24 02/29/2024 COMP. METAB OLIC PANEL (14) BUN 16 mg/dL 6-24 Not Available [facility] ([facility]) [address] [place], [address], 02/29/2024 11:17:25 02/27/20 24 02/29/2024 COMP. METAB OLIC PANEL (14) creatinine 0.76 mg/dL 0.57-1 .00 Not Available [facility] ([facility]) [address] [place], [address], 02/29/2024 11:17:25 02/27/20 24 02/29/2024 COMP. METAB OLIC PANEL (14) eGFR 93 mL/mi n/1.7 3 >59 Not Available [facility] ([facility]) [address] [place], [address], 02/29/2024 11:17:25 02/27/20 24 02/29/2024 COMP. METAB OLIC PANEL (14) BUN/creatini ne ratio 21 9-23 Not Available [facility] ([facility]) [address] [facility], [place], [address], 02/29/2024 11:17:25 02/27/20 24 02/29/2024 COMP. METAB OLIC PANEL (14) sodium 136 mmol/ L 134-14 4 Not Available [facility] ([facility]) [address] [place], [address], 02/29/2024 11:17:25 02/27/20 24 02/29/2024 COMP. METAB OLIC PANEL (14) potassium 4.6 mmol/ L 3.5-5. 2 Not Available [facility] ([facility]) [address] [place], [address], 02/29/2024 11:17:25 02/27/20 24 02/29/2024 COMP. METAB OLIC PANEL (14) chloride 100 mmol/ L 96-106 Not Available [facility] ([facility]) [address] [facility] [place], [address], 02/29/2024 11:17:25 02/27/20 24 02/29/2024 COMP. METAB OLIC PANEL (14) carbon dioxide, total 23 mmol/ L 20-29 Not Available [facility] ([facility]) [address] [facility] [place], [address], 02/29/2024 11:17:25 02/27/20 24 02/29/2024 COMP. METAB OLIC PANEL (14) calcium 8.7 mg/dL 8.7-10 .2 Not Available [facility] ([facility]) [address] [facility] [place], [address], 02/29/2024 11:17:25 02/27/20 24 02/29/2024 COMP. METAB OLIC PANEL (14) protein, total 6.4 g/dL 6.0-8. 5 Not Available [facility] ([facility]) [address] [facility] [place], [address], 02/29/2024 11:17:25 02/27/20 24 02/29/2024 COMP. METAB OLIC PANEL (14) albumin 3.9 g/dL 3.8-4. 9 Not Available [facility] ([facility]) [address] [facility] [place], [address], 02/29/2024 11:17:25 02/27/20 24 02/29/2024 COMP. METAB OLIC PANEL (14) globulin, total 2.5 g/dL 1.5-4. 5 Not Available [facility] ([facility]) [address] [facility] [place], [address], 02/29/2024 11:17:25 02/27/20 24 02/29/2024 COMP. METAB OLIC PANEL (14) bilirubin, total 0.2 mg/dL 0.0-1. 2 Not Available [facility] ([facility]) [address] [facility] [place], [address], 02/29/2024 11:17:25 02/27/20 24 02/29/2024 COMP. METAB OLIC PANEL (14) alkaline phosphatase 123 IU/L 44-121 above high normal Not Available [facility] ([facility]) [address] [facility] [place], [address], 02/29/2024 11:17:25 02/27/20 24 02/29/2024 COMP. METAB OLIC PANEL (14) AST (SGOT) 11 IU/L 0-40 Not Available [facility] ([facility]) [address] [facility] [place], [address], 02/29/2024 11:17:25 02/27/20 24 02/29/2024 COMP. METAB OLIC PANEL (14) ALT (SGPT) 11 IU/L 0-32 Not Available [facility] ([facility]) [address] [facility] [place], [address], 02/29/2024 11:17:25 02/27/20 24 02/27/2024 HbA1c (hemo globi n A1c), blood HbA1c 14 Not Available In-Office Order Internal Use Only DO Not Attach Compendium DO Not Attach Compendium, Do Not Delete/merge, [id number] 02/27/2024 16:08:05 03/10/20 24 03/10/2024 Compr MiniBanda.ruens clinton metab olic 1999 panel - Serum or Plasm a urea nitrogen [mass/volume ] in serum or plasma 19 mg/dL low: 7mg/dL high: 26mg/d L BUN 19 7 - 26 mg/dL 03/10 9:06 AM CDT [facility] Not Available Not Available 09/29/2024 15:34:49 03/10/20 24 03/10/2024 Compr ehens clinton metab olic 1999 panel - Serum or Plasm a creatinine [mass/volume ] in serum or plasma 0.55 mg/dL low: 0.56mg /dLhig h: 0.96mg /dL low Creat inine 0.55 (L) 0.56 - 0.96 mg/dL 03/10 9:06 AM CDT [facility] Not Available Not Available 09/29/2024 15:34:49 03/10/20 24 03/10/2024 Compr MiniBanda.ruens clinton metab olic 1999 panel - Serum or Plasm a sodium [moles/volum e] in serum or plasma 139 mmol/ L low: 136mmo l/Lhig h: 145mmo l/L Sodiu m 139 136 - 145 mmol/ L 03/10 9:06 AM CDT [facility] Not Available Not Available 09/29/2024 15:34:49 03/10/20 24 03/10/2024 Compr MiniBanda.ruens clinton metab olic 1999 panel - Serum or Plasm a potassium [moles/volum e] in serum or plasma 3.9 mmol/ L low: 3.5mmo l/Lhig h: 4.5mmo l/L Potas sium 3.9 3.5 - 4.5 mmol/ L 03/10 9:06 AM CDT [facility] Not Available Not Available 09/29/2024 15:34:49 03/10/20 24 03/10/2024 Compr ehens clinton metab olic 1999 panel - Serum or Plasm a chloride [moles/volum e] in serum or plasma 108 mmol/ L low: 98mmol /Lhigh : 107mmo l/L high Chlor soheila 108 (H) 98 - 107 mmol/ L 03/10 9:06 AM CDT [facility] Not Available Not Available 09/29/2024 15:34:49 03/10/20 24 03/10/2024 Compr ehens clinton metab olic 1999 panel - Serum or Plasm a carbon dioxide, total [moles/volum e] in serum or plasma 23 mmol/ L low: 22mmol /Lhigh : 29mmol /L CO2 23 22 - 29 mmol/ L 03/10 9:06 AM T [facility] Not Available Not Available 09/29/2024 15:34:49 03/10/20 24 03/10/2024 Compr ehens clinton metab olic 1999 panel - Serum or Plasm a glucose [mass/volume ] in serum or plasma 208 mg/dL low: 70mg/d Lhigh: 115mg/ dL high Gluco se 208 (H) 70 - 115 mg/dL 03/10 9:06 AM T [facility] Not Available Not Available 09/29/2024 15:34:49 03/10/20 24 03/10/2024 Compr ehens clinton metab olic 1999 panel - Serum or Plasm a calcium [moles/volum e] in serum or plasma 8.8 mg/dL low: 8.4mg/ dLhigh : 10.2mg /dL Calci um 8.8 8.4 - 10.2 mg/dL 03/10 9:06 AM CDT [facility] Not Available Not Available 09/29/2024 15:34:49 03/10/20 24 03/10/2024 Compr ehens clinton metab olic 1999 panel - Serum or Plasm a protein [mass/volume ] in serum or plasma 7 g/dL low: 6g/dLh igh: 8.3g/d L Prote in Total 7.0 6.0 - 8.3 g/dL 03/10 9:06 AM CDT [facility] Not Available Not Available 09/29/2024 15:34:49 03/10/20 24 03/10/2024 Compr ehens clinton metab olic 2000 panel - Serum or Plasm a albumin [mass/volume ] in serum or plasma by bromocresol green (bcg) dye binding method 3.6 g/dL low: 3.4g/d Lhigh: 5g/dL Album in 3.6 3.4 - 5.0 g/dL 03/10 9:06 AM CDT [facility] Not Available Not Available 09/29/2024 15:34:49 03/10/20 24 03/10/2024 Compr ehens clinton metab olic 2000 panel - Serum or Plasm a bilirubin.to hiwot [mass/volume ] in serum or plasma 0.3 mg/dL low: 0.2mg/ dLhigh : 1.2mg/ dL Bilir ubin Total 0.3 0.2 - 1.2 mg/dL 03/10 9:06 AM CDT [facility] Not Available Not Available 09/29/2024 15:34:49 03/10/20 24 03/10/2024 Compr ehens clinton metab olic 2000 panel - Serum or Plasm a alkaline phosphatase [enzymatic activity/vol ume] in serum or plasma 99 U/L low: 40U/Lh igh: 150U/L Alkal ine Phosp hatas e 99 40 - 150 U/L 03/10 9:06 AM CDT [facility] Not Available Not Available 09/29/2024 15:34:49 03/10/20 24 03/10/2024 Compr ehens clinton metab olic 2000 panel - Serum or Plasm a alanine aminotransfe rase [enzymatic activity/vol ume] in serum or plasma by no addition of P-5'-P 11 U/L low: 5U/Lhi gh: 55U/L ALT 11 5 - 55 U/L 03/10 9:06 AM CDT [facility] Not Available Not Available 09/29/2024 15:34:49 03/10/20 24 03/10/2024 Compr ehens clinton metab olic 2000 panel - Serum or Plasm a aspartate aminotransfe rase [enzymatic activity/vol ume] in serum or plasma 14 U/L low: 5U/Lhi gh: 34U/L AST 14 5 - 34 U/L 03/10 9:06 AM CDT [facility] Not Available Not Available 09/29/2024 15:34:49 03/10/20 24 03/10/2024 Compr ehens clinton metab olic 1999 panel - Serum or Plasm a anion gap 8 low: 6high: 16 Anion Gap 8 6 - 16 03/10 9:06 AM CDT [facility] Not Available Not Available 09/29/2024 15:34:49 03/10/20 24 03/10/2024 Compr ehens clinton metab olic 1999 panel - Serum or Plasm a urea nitrogen/cre atinine [mass ratio] in serum or plasma 35 low: 7high: 23 high BUN/C reati nine Ratio 35 (H) 7 - 23 03/10 9:06 AM T [facility] Not Available Not Available 09/29/2024 15:34:49 03/10/20 24 03/10/2024 Compr ehens clinton metab olic 1999 panel - Serum or Plasm a osmolality calculated 296 text: 275 - 295 mOsm/k g high Osmol ality Calcu lated 296 (H) 275 - 295 mOsm/ kg 03/10 9:06 AM T [facility] Not Available Not Available 09/29/2024 15:34:49 03/10/20 24 03/10/2024 Compr ehens clinton metab olic 1999 panel - Serum or Plasm a albumin/glob ulin ratio 1.1 low: 1.1hig h: 2.3 Album in/Gl obuli n Ratio 1.1 1.1 - 2.3 03/10 9:06 AM CDT [facility] Not Available Not Available 09/29/2024 15:34:49 03/10/20 24 03/10/2024 Compr ehens clinton metab olic 1999 panel - Serum or Plasm a glomerular filtration rate/1.73 sq M.predicted [volume rate/area] in serum, plasma or blood by creatinine-b ased formula (CKD-epi) text: >=90 mL/min /1.73 m2 eGFR by CKD-E PI >90 >=90 mL/mi n/1.7 3 m2 03/10 9:06 AM CDT [facility] Not Available Not Available 09/29/2024 15:34:49 03/10/20 24 03/10/2024 Compr ehens clinton metab olic 2000 panel - Serum or Plasm a interpretati on and review of laboratory results Abnorm al Not Available Not Available 15:34:49 04/17/20 24 04/17/2024 HbA1c (hemo globi n A1c), blood HbA1c 9.3 Not Available In-Office Order Internal Use Only DO Not Attach Compendium DO Not Attach Compendium, Do Not Delete/merge, 04/17/2024 09:04:57 07/15/20 24 07/15/2024 gluco se, finge rstic k, blood Blood Glucose: mg/dl 266 Not Available In-Off ice Order Internal Use Only DO Not Attach Compendium DO Not Attach Compendium, Do Not Delete/merge, [id number] 07/15/2024 16:09:59 07/18/20 24 07/18/2024 HbA1c (hemo globi n A1c), blood HbA1c 9.9 Not Available In-Office Order Internal Use Only DO Not Attach Compendium DO Not Attach Compendium, Do Not Delete/merge, [id number] 07/15/2024 16:00:35 10/01/19 25 09/30/2024 gluco se, finge rstic k, blood Blood Glucose: mg/dl 325 Not Available In-Off ice Order Internal Use Only DO Not Attach Compendium DO Not Attach Compendium, Do Not Delete/merge, 09/30/2024 09:11:23 10/01/19 25 09/30/2024 HbA1c (hemo globi n A1c), blood HbA1c 11.2 Not Available In-Office Order Internal Use Only DO Not Attach Compendium DO Not Attach Compendium, Do Not Delete/merge, 09/30/2024 09:11:23 01/28/20 25 01/28/2025 HEMOG LOBIN A1C hemoglobin A1C 10.9 % 4.8-5. 6 above high normal Predi abete s: 5.7 - 6.4 Diabe edin: >6.4 Glyce charly contr ol for adult s with diabe edin: <7.0 Not Available [facility] ([facility]) [address] [place], [address], 01/28/2025 06:19:20 01/28/2001/28/2025 ALBUM IN/CR EATIN INE RATIO ,URIN E creatinine, urine 95.2 mg/dL notest ab. Not Available [facility] ([facility]) [address] [place], [address], 01/28/2025 11:12:54 01/28/20 25 01/28/2025 ALBUM IN/CR EATIN INE RATIO ,URIN E albumin, urine 893.2 ug/mL notest ab. Resul ts confi rmed on dilut ion. Not Available [facility] ([facility]) [address] [place], [address], 01/28/2025 11:12:54 01/28/20 25 01/28/2025 ALBUM IN/CR EATIN INE RATIO ,URIN E alb/creat ratio 938 mg/g_ creat 0-29 above high normal Aide l: 0 - 29 Moder ately incre ased: 30 - 300 Sever shana incre ased: >300 Not Available [facility] ([facility]) [address] [place], [address], 01/28/2025 11:12:54 01/28/20 25 01/28/2025 LIPID PANEL cholesterol, total 246 mg/dL 100-19 9 above high normal Not Available [facility] ([facility]) [address] [place], [address], 01/28/2025 11:12:55 01/28/20 25 01/28/2025 LIPID PANEL triglyceride s 231 mg/dL 0-149 above high normal Not Available [facility] ([facility]) [address] [facility], [place], [address], 01/28/2025 11:12:55 01/28/20 25 01/28/2025 LIPID PANEL HDL cholesterol 51 mg/dL >39 Not Available [facility] ([facility]) [address] [facility], [place], [address], 01/28/2025 11:12:55 01/28/20 25 01/28/2025 LIPID PANEL VLDL cholesterol christ 42 mg/dL 5-40 above high normal Not Available [facility] ([facility]) [address] [facility], [place], [address], 01/28/2025 11:12:55 01/28/20 25 01/28/2025 LIPID PANEL LDL chol calc ([facility]) 153 mg/dL 0-99 above high normal Not Available [facility] ([facility]) [address] [facility], [place], [address], 01/28/2025 11:12:55 01/28/20 25 01/27/2025 gluco se, finge rstic k, blood Blood Glucose: mg/dl 169 Not Available In-Off ice Order Internal Use Only DO Not Attach Compendium DO Not Attach Compendium, Do Not Delete/merge, [id number] 01/27/2025 14:05:10 12/11/19 25 12/09/2024 MAMMO , scree john, bilat eral No observ ation record ed. [facility] [address] [facility], [place], [address], 12/11/2024 11:37:29 Result Notes None recorded. 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 891664117 Active Frances Ojeda PA-C Attn: Accounting ,[address] [place], [place], [address] [place] [address] , [facility] 6 15:16:51 Hyperlipi demia 02719256 Active Frances Ojeda PA-C Attn: Accounting ,[address] [place], [place], [address] [place] [address] , [facility] 6 15:16:51 [facility] [id number] Completed 12/08/2019 NICOLE ZHANG Attn: Accounting ,[address] [place], [place], [address] [place] [address] , [facility] 0 13:16:19 Acute sinusitis 32743736 Completed 10/09/2019 NICOLE ZHANG Attn: Accounting ,[address] [place], [address] [place] [address] , [place] [facility] 0 13:40:31 Lesion of cervix 340187071 Active Frances Ojeda PA-C Attn: Accounting ,[address] [place], [place], [address] [place] [address] , [facility] 6 15:16:51 HPV - Human papilloma virus test positive Active Frances Ojeda PA-C Attn: Accounting ,[address] [place], [place], [address] [place] [address] , [place] [facility] 6 15:16:51 Hypertrig lyceridem ia 693287671 Active Frances Ojeda PA-C Attn: Accounting ,[address] [place], [place], [address] [place] [address] , [place] [facility] 6 15:16:51 Allergic rhinitis 22496478 Erica Ojeda PA-C Attn: Accounting ,[address] [place], [place], [address] [place] [address] , [place] [facility] 6 15:16:51 Bacterial vaginosis 463146029 Completed 12/08/2019 NICOLE ZHANG Attn: Accounting ,[address] [facility], [place], [address] , [facility] 0 13:16:05 Mass of left breast [id number] 202133 Active 2016 Frances Ojeda PA-C Attn: Accounting ,[address] [facility], [place], [address] , [facility] 7 15:02:16 Screening for malignant neoplasm of breast Completed 201612/08/2019 NICOLE ZHANG Attn: Accounting ,[address] [facility], [place], [address] , [facility] 0 13:16:11 Body mass index 25-29 - overweigh t 281333810 Active 2016 Frances Ojeda PA-C Attn: Accounting ,[address] [facility], [place], [address] , [facility] 7 10:17:47 Noncompli ance with treatment 3957865 Active 2016 Frances Ojeda PA-C Attn: Accounting ,[address] [facility], [place], [address] , [facility] 7 10:17:48 Depressiv e disorder 73391001 Active 2016 Frances Ojeda PA-C Attn: Accounting ,[address] [facility], [place], [address] , [facility] 7 10:18:38 Microalbu minuric diabetic nephropat hy 858034268 Active 2022 NICOLE ZHANG Attn: Accounting ,[address] [facility], [place], [address] , [place] [facility] 3 11:30:09 Hiatal hernia 51934135 Active 2022 NICOLE DE LEÓN Attn: Accounting ,[address] [facility], [place], [address] , [facility] 3 13:44:33 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 Procedures Surgical History Date Name Laterality Status Provider Name and Address Organization Details Recorded Time 3 Colposcopy completed NICOLE RUIZ Attn: Accounting,[address] [place], [address], [facility] 02/01/2023 16:54:17 3 Date of Last Pap Smear completed Shahida Chacko MA [facility] 01/22/2023 15:33:32 7 Date of Last Mammogram completed Lilia Fairbanks MA [facility] 01/31/2023 11:20:21 Imaging Results None recorded. Procedure Notes None recorded. Medical Equipment None Reported. Allergies No known drug allergies Medications Name Sig Start Date Stop Date Status Note LastModified by Organization Details LastModified Time cyclobenz aprine 10 mg tablet Take 1 tablet twice a day by oral route as needed. 10/28 completed Not Available Not Available Not Available Miralax 17 gram/dose oral powder In a pitcher, mix entire bottle of Miralax in one 64 ounce bottle of yellow or green Gatorade . Beginnin g at 5:00 PM the evening before the colonosc opy, drink 1 8-ounce glass every 15 minutes until complete d. Drink 4 glasses of water after finishin g this mixture 02/26 completed Not Available Not Available Not Available atorvasta tin 40 mg tablet TAKE ONE TABLET BY MOUTH EVERY EVENING FOR CHOLESTE ROL active Not Available Not Available No t Available metformin 500 mg tablet TAKE TWO TABLETS BY MOUTH TWO TIMES A DAY FOR DIABETES 11/24 completed Not Available Not Available Not Available Augmentin 875 mg-125 mg tablet Take 1 tablet twice a day by oral route for 7 days. 2014 active Not Available Not Available Not Avai lable azelastin e 0.05 % eye drops INSTILL ONE DROP IN THE AFFECTED EYE TWICE DAILY 02/26 completed Not Available Not Available Not Available atorvasta tin 20 mg tablet TAKE ONE TABLET BY MOUTH AT BEDTIME FOR CHOLESTE ROL 11/24 completed Not Available Not Available Not Available atorvasta tin 10 mg tablet Take 1 tablet every day by oral route in the evening for 30 days. 10/07 completed Not Available Not Available Not Available Novolin N NPH U-100 Insulin isophane 100 unit/mL subcutane ous susp INJECT 30 UNITS EVERY MORNING AND 20 UNITS EACH EVENING FOR DIABETES active Not Available Not Available No t Available metronida zole 500 mg tablet Take 1 tablet every 12 hours by oral route for 7 days. 04/26 completed Not Available Not Available Not Available acetamino phen 300 mg-codein e 30 mg tablet TAKE 1 TABLET BY MOUTH 4 TIMES DAILY NEEDED FOR PAIN 10/03 completed Not Available Not Available Not Available triamcino lone acetonide 0.1 % topical cream APPLY A THIN LAYER TO THE AFFECTED AREA(S) BY TOPICAL ROUTE 2 TIMES PER DAY 10/28 completed Not Available Not Available Not Available butalbita l-acetami nophen-ca ffeine 50 mg-325 mg-40 mg tablet Take 1 tablet every 4 hours by oral route. 10/07 completed Not Available Not Available Not Available Depo-Medr ol 80 mg/mL suspensio n for injection Take 1 mL by injectio n route. 01/02 completed Not Available Not Available Not Available famotidin e 20 mg tablet Take 1 tablet twice a day by oral route. active Have not rxed to patient since Not Available Not Available Not Available Fiorinal- Codeine #3 30 mg-50 mg-325 mg-40 mg capsule Take 1 capsule every 4 hours by oral route. 09/29 completed Not Available Not Available Not Available prednisol one acetate 1 % eye drops,mario pension INSTILL 1 DROP INTO AFFECTED EYE(S) BY OPHTHALM IC ROUTE 4TIMES PER DAY 02/26 completed Not Available Not Available Not Available gemfibroz il 600 mg tablet Take 1 tablet twice a day by oral route before meals. 04/30 completed Not Available Not Available Not Available cephalexi n 500 mg capsule TAKE 1 CAPSULE BY MOUTH 4 TIMES DAILY 03/14 completed Not Available Not Available Not Available simvastat in 20 mg tablet Take 1 tablet every day by oral route in the evening. active Have not rxed since Not Available Not Available Not Available metformin 1,000 mg tablet Take 1 tablet twice a day by oral route. 11/26 completed Not Available Not Available Not Available Humulin 70/30 U-100 Insulin 100 unit/mL subcutane ous suspensio n Inject 20 units qAM and 22 units qPM, subcut active Have not rxed to patient since Not Available Not Available Not Available ibuprofen 400 mg tablet Take 1 tablet every 8 hours by oral route for 14 days. 01/27 completed Not Available Not Available Not Available omeprazol e 20 mg capsule,d elayed release TAKE ONE CAPSULE BY MOUTH EVERY DAY FOR STOMACH active Not Available Not Available No t Available aspirin 81 mg chewable tablet Chew 1 tablet every day by oral route for 90 days. 01/27 completed Not Available Not Available Not Available lisinopri l 5 mg tablet Take 1 tablet every day by oral route for 30 days. 10/28 completed Not Available Not Available Not Available sertralin e 50 mg tablet Take 1 tablet every day by oral route for 30 days. 11/24 completed Not Available Not Available Not Available loratadin e 10 mg tablet TAKE 1 TABLET BY MOUTH EVERY DAY FOR 30 DAYS active Not Available Not Available No t Available Dulcolax (bisacody l) 5 mg tablet,de layed release At 2:00 PM the day before the colonosc opy, take all 4 tablets of Dulcolax by mouth at one time with 8 ounces of water 02/26 completed Not Available Not Available Not Available Alcohol Prep Pads active Not Available Not Available No t Available nitrofura ntoin monohydra te/macroc rystals 100 mg capsule TAKE ONE CAPSULE BY MOUTH TWICE DAILY FOR INFECTIO N 11/24 completed Not Available Not Available Not Available Levemir U-100 Insulin 100 unit/mL subcutane ous solution Inject 44 units every day by subcutan eous route in the evening. 2024 active Not Available Not Available Not Avai lable Lantus Solostar U-100 Insulin 100 unit/mL (3 mL) subcutane ous pen Inject 44 units every day by subcutan eous route. 01/27 completed Not Available Not Available Not Available Tradjenta 5 mg tablet Take 1 tablet every day by oral route. 11/30 completed Rx by endo Not Available Not Available Not Available OneTouch Verio test strips active Not Available Not Available Not Available TRUEplus Lancets 33 gauge active Not Available Not Available Not Available Victoza 3-Loco 0.6 mg/0.1 mL (18 mg/3 mL) subcutane ous pen injector Inject 1.2 mg every day by subcutan eous route for 30 days. 11/22 completed Not Available Not Available Not Available Farxiga 10 mg tablet Take 1 tablet every day by oral route for 90 days. 2024 active Not Available Not Available Not Avai lable Jardiance 10 mg tablet TAKE ONE TABLET BY MOUTH EVERY DAY FOR DIABETES 02/26 completed Not Available Not Available Not Available Semglee (insulin glargine- yfgn) Pen 100 unit/mL (3 mL) subcutane ous Inject 35 units every day by subcutan eous route for 90 days. 2024 active Not Available Not Available Not Avai lable Semglee (insulin glargine- yfgn) 100 unit/mL subcutane ous solution INJECT 34 UNITS IN THE EVENING. DISCARD BOTTLE AFTER 28 DAYS. active Not Available Not Available No t Available Vitals Date Recorded Body height Body mass index (BMI) Body weight Heart rate Oxygen saturation Systolic And Diastolic Provider Name and Address Organization Details Last Updated DateTime 5 157.48 cm 26 kg/m2 42322.8 2 g 74 /min 99 % 133/72 mm[Hg] Violeta Damian MA [facility] 5 09:12:42 Date Recorded Body height Body mass index (BMI) Body weight Respiratory rate Body temperature Oxygen saturation Heart rate Systolic And Diastolic Provider Name and Address Organization Details Last Updated DateTime 5 157.48 cm 26.8 kg/m2 96071.2 9 g 18 /min 97.7 [degF] 97 % 76 /min 128/78 mm[Hg] Anastacia Ma [facility] 5 14:07:36 Date Recorded Body height Body mass index (BMI) Body weight Heart rate Respiratory rate Oxygen saturation Systolic And Diastolic Provider Name and Address Organization Details Last Updated DateTime 4 157.48 cm 24.7 kg/m2 85619.9 7 g 73 /min 16 /min 98 % 102/60 mm[Hg] Anitra Hernandez MA [facility] 4 16:07:07 Date Recorded Body height Body mass index (BMI) Body weight Heart rate Oxygen saturation Systolic And Diastolic Provider Name and Address Organization Details Last Updated DateTime 4 157.48 cm 25.1 kg/m2 51244.1 5 g 79 /min 99 % 102/63 mm[Hg] Violeta Damian MA [facility] 4 15:56:24 Date Recorded Body height Body mass index (BMI) Body weight Heart rate Oxygen saturation Systolic And Diastolic Provider Name and Address Organization Details Last Updated DateTime 4 157.48 cm 27.1 kg/m2 33681.0 7 g 75 /min 98 % 120/70 mm[Hg] Violeta Damian MA [facility] 4 15:51:03 Social History Question Answer Notes LastModified by Organizat ion Details LastModified Time Tobacco Smoking Status Never Smoker YESSI Lyles, [facility] 09/18/2014 14:57:47 Do You Have An Advance Directive? No [email or web address] Information not available 09/18/2014 What Is Your Level Of Caffeine Consumption? Moderate [email or web address] Information not available 09/18/2014 How Much Tobacco Do You Chew? None [email or web address] Information not available 09/18/2014 In The 14 Days Before Symptom Onset, Have You Had Close Contact With A Laboratory-confi rmed COVID-19 While That Case Was Ill? No Information not available 11/29/2020 In The 14 Days Before Symptom Onset, Have You Had Close Contact With A Person Who Is Under Investigation For COVID-19 While That Person Was Ill? No Information not available 11/29/2020 Have You Been To An Area Known To Be High Risk For COVID-19? No Information not available 11/29/2020 What Type Of Diet Are You Following? REGULAR [email or web address] Information not available 09/18/2014 Which Illicit Or Recreational Drugs Have You Used? N/a Information not available 10/07/2019 Education Less Than 8th Grade [email or web address] Information not available 09/18/2014 Are There Any Guns Present In Your Home? No [email or web address] Information not available 09/18/2014 Hard Of Hearing Or Deaf In One Or Both Ears? No [email or web address] Information not available 09/18/2014 Legally Blind In One Or Both Eyes? No Difficulty With Near Sight. Information not available 10/07/2019 Live Alone Or With Others? With Others Information not available 09/18/2014 Do You Have A Medical Power Of Director Product Development? No [email or web address] Information not available 03/06/2023 What Was The Date Of Your Most Recent Tobacco Screening? 09/30/2024 Information not available 09/30/2024 How Many Children Do You Have? 4 [email or web address] Information not available 09/18/2014 Do You Use Protection During Sex? Always [email or web address] Information not available 09/18/2014 Seat Belts Used Routinely Yes Information not available 09/18/2014 Are You Sexually Active? Yes [email or web address] Information not available 09/18/2014 Smoke Alarm In Home Yes [email or web address] Information not available 09/18/2014 Do You Have Smoke And Carbon Monoxide Detectors In Your Home? Yes Information not available 10/28/2021 Are You Passively Exposed To Smoke? No Information not available 01/08/2020 How Much Tobacco Do You Smoke? No Information not available 10/07/2019 General Stress Level High Information not available 01/08/2020 Has Tobacco Cessation Counseling Been Provided? Yes Information not available 10/28/2021 On What Date Was Tobacco Cessation Counseling Provided? 09/30/2024 Information not available 09/30/2024 Sex: Female Functional Status Question Answer Note LastModified by Organizat ion Details LastModified Time Do you use any illicit or recreational drugs? No Information not available 10/28/2021 What is your level of alcohol consumption? None Information not available 10/28/2021 Do you or have you ever used smokeless tobacco? Never used smokeless tobacco Information not available 10/07/2019 Are you currently employed? Yes Information not available 10/28/2021 Are you able to care for yourself independently? Yes [email or web address] Information not available 09/18/2014 What is your occupation? [employer] Information not available 10/28/2021 Do you or have you ever used e-cigarettes or vape? Never used electronic cigarettes Information not available 10/07/2019 What is your exercise level? None Information not available 09/18/2014 Mental Status None recorded. Family History Relationship Description Onset Age of this Age Resolved Age Notes LastModified by Organization Details LastModified Time Mother 64 Not available 11/30/2015 16:09:49 Father 77 Not available 11/30/2015 16:09:49 Sister Diabetes mellitus [email or web address] Not available 2015 16:09:49 Sister Hypertensive disorder [email or web address] Not available 2015 16:09:49 Medical History Condition Response Coronary Artery Disease N Other N Atrial Fibrillation N High Blood Pressure N Kidney or Bladder Problems N Thyroid Problems N GI Problems N Depression N COPD N Blood Clots N Skin Problems N Anemia N Heart Attack (SD) N Anxiety Disorder N Diabetes Y Muscle, Joint, or Bone Problems N Arthritis N Seizures/Epilepsy N Acid Reflux (GERD) N Cancer N Stroke N Asthma N Allergies N ADHD N High Cholesterol Y Hepatitis N Liver Disease N Headaches N Hypertension N Heart Failure N Osteoporosis N Gynecological History Statement/Question Response If Post Menopausal, Age at Menopause 43 Date of Last Mammogram 01/01/2017 Date of LMP Menses Monthly N Date of Last Pap Smear 12/19/2022 Age at Menarche 9 Current Control Method None Age at First Child 14 LMP Unknown Obstetrics History GPAL:G 4 P 4 0 0 4 Type Value Multiple Births 0 Full Term 4 Induced 0 Spontaneous 0 Premature 0 Living 4 Ectopics 0 Total 4 Immunizations Vaccine Type Date Status Note Provider Nam e and Address Organization Details Recorded Time COVID-19, mRNA, LNP-S, PF, 30 mcg/0.3 mL dose 1 completed Nicole Diaz null, [place] [facility] 02/14/2021 12:27:27 Influenza, split virus, quadrivalent, preservative 6 completed Not Available [facility] 08/16/2019 02:33:24 COVID-19, mRNA, LNP-S, PF, 30 mcg/0.3 mL dose 1 completed Lilia Fairbanks [place], [place] [facility] 01/31/2023 11:20:55 Tdap 7 completed Not Available [facility] 08/16/2019 02:39:46 Influenza, split virus, quadrivalent, preservative 7 completed Not Available [facility] 08/16/2019 02:34:20 pneumococcal polysaccharide PPV23 8 completed Not Available [facility] 08/16/2019 02:35:52 Pneumococcal conjugate PCV20, polysaccharide WDW018 conjugate, adjuvant, PF 3 completed NICOLE ZHANG Attn: Accounting[address] [place], [address], [place] [facility] 11/22/2022 14:37:40 Past Encounters Encounter ID Performer Location Encounter Start Date Encounter Closed Date Diagnosis/Indication Diagnosis SNOMED-CT Code Diagnosis ICD10 Code Diagnosis IMO Codes Diagnosis Note [id number] MAREN Black [address] [facility] [place] [address] 09/18/2014 14:02:16 09/18/2014 16:03:32 Uncontrolled type 2 diabetes mellitus [id number] Cervicovag inal cytology: High grade squamous intraepithelial lesion or carcinoma 840837823 Acute sinusitis 14910859 Patient no ncompliance - general 639723288 Hyperlipidemia 21063713 [id number] MAREN Black Gabbs Tari[place] [address] [place] [address] 09/25/2014 14:11:25 09/25/2014 15:17:01 Gynecologic examination 18216699 Screening for malignant neoplasm of breast 250184114 Cervicovag inal cytology: High grade squamous intraepithelial lesion or carcinoma 433743547 Lesion of cervix 537177953 Venereal d isease screening 060888682 Consents to STD screening. Will have bloodwork drawn with her DM labs fasting. 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 [address] [place] [id number] 05/28/2015 16:10:29 05/28/2015 16:42:13 Uncontrolled type 2 diabetes mellitus 899453283 E11.65 Will restart all medication s that she was previously taking and have patient RTC in one month Patient aware of the fact she needs her medication s and cannot go without them. Cervicovag inal cytology: High grade squamous intraepithelial lesion or carcinoma 242742788 R87.613 Repeat pap in August 2015 Patient no ncoliance - general 464805968 Z91.19 Has been out of medication for over two months Hyperlipidemia 37045706 E78.5 [id number] Loco Vail MD [facility] (Adult Med) [address] [place] [id number] 08/24/2015 14:02:22 08/24/2015 14:55:54 Uncontrolled type 2 diabetes mellitus 805016820 E11.65 Will restart all medication s that she was previously taking and have patient RTC in one month Patient aware of the fact she needs her medication s and cannot go without them. She is going to check her BS BID - once fasting and once 2 hours after any meal - she was given a sheet to record her sugars on and will RTC with this sheet Discussed the possibilit y of starting insulin at next appointmen t - will evaluate what her sugars are running at home in addition to her a1c - she has issues taking medication s on time, I am unsure as to how she would do with insulin if she cannot remember to take her oral medication s - will re-evaluat e at her next appointmen t in 3 months Cervicovag inal cytology: High grade squamous intraepithelial lesion or carcinoma 886891509 R87.613 Repeat pap in August 2015 Advised her to contact Luis E at [facility] to have the appointmen t set up [facility] [id number] Z91.19 Has been out of medication for over two months I have addressed the importance of taking her medication is with her in addition to the complicati ons of blindness, kidney disease, and heart disease if she does not control her sugars. She v/u - however, I do not believe she completely understand s how critical it is for her to take all of her medication s correctly Hyperlipidemia 79097213 E78.5 [id number] MD Claire Roland (Adult Med) [address] [place] [phone] 09/14/2015 09:36:28 09/14/2015 12:21:55 Uncontrolled type 2 diabetes mellitus 089639119 E11.65 She did not bring in blood sugar log - states that they're generally less than 200 Patient aware of the fact she needs her medication s and cannot go without them. 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 HGSIL Last pap 08/2014 WNL There was confusion with her appointmen t today and the paperwork she had from [facility] only said CBE so that is all that was performed Discussed with Delphine and she will contact [facility] to let them know that she needs a repeat pap and to have them schedule her one Screening for malignant neoplasm of breast 855942617 Z12.31 Gynecologi c examination 90151399 Z01.411 WIll order screen mammogram [id number] MD Claire Roland (Adult Med) [address] [place] [id number] 12/31/2015 11:53:30 12/31/2015 12:57:36 Uncontrolled type 2 diabetes mellitus 815329186 E11.65 She did not bring in blood sugar log - states that they're generally less than 200 Patient aware of the fact she needs her medication s and cannot go without them. Currently: insulin to 30 units qPM and 20 units qPM Advised my goal for her is sugars 120-150 at all times Will complete labs today Hyperlipidemia 56291776 E78.5 Allergic rhinitis 555976 04 J30.9 [id number] MD Claire Roland (Adult Med) [address] [place] [id number] 04/07/2016 11:00:23 04/07/2016 11:56:53 Gynecologic examination 78866098 Z01.411 hx/o HGSIL Lesion of cervix 2507004 01 N88.9 Active or passive immunization 156133895 Z23 [id number] MD Claire Roland (Adult Med) [address] [place] [id number] 12/21/2016 14:19:42 12/21/2016 18:08:04 Mass of left breast 4733577766 3148025 N63 left breast: 6 o'clock position 1cm deep, semi-mobil e - will order bilateral diagnostic mammogram with left breast US Screening for malignant neoplasm of breast 837521495 Z12.31 [id number] MD Claire Roland (Adult Med) [address] [place] [id number] 02/01/2017 09:15:02 02/05/2017 11:20:12 Uncontrolled type 2 diabetes mellitus 029828702 E11.65 Will check fasting labs today and then restart medication Patient given log to track BS - advised to check TIDRTC 3 weeks with BS log and to go over labs Hyperlipidemia 89269382 E78.5 Will restart Noncomplia nce with treatment 8895487 Z91.19 Long discussion that diabetes can kill herDiscuss ed DM can cause issues with eyes, kidneys, hearts, stroke, neuropathy Discussed she needs to make her appointmen ts and f/u as directed Body mass index 25-29 - overweight 932427774 Z68.25 Advised 30 minutes of exercise 5 days/week Advised to not drink her calories Advised 3 balanced meals/day with plenty of fruits and vegetables Active or passive immunization 740401053 Z23 Screening for disorder 390298642 Z13.9 Depressive disorder 7012 3935 F32.9 Patient advised to make counseling appointmen t todayAdvis ed any SI/HI to go directly to the ERPatient does not want to begin medication at this time [id number] Bianca Sue MD [facility] (Adult Med) [address] [place] [address] 04/26/2017 08:55:30 04/26/2017 13:24:26 Uncontrolled type 2 diabetes mellitus [id number] E11.65 last a1c: 12.3At this time we are going to change her DM medication WIll initiate Levemir 25 units qPM and metformin 1000mg BID - d/c NovolinAdv ised that the goal for her is FBS ~10 every morning - if she is not close to there, advised to increase her insulin 2 units qPM to a max of 50 units nightlyPat ient advised she needs to stop eating tortillas, rice, orange juiceLong discussion about dietAdvise d DASH diet Advised to contact clinic if BS <70 or >300RTC 6 weeks for f/u Advised that she needs to take care of herself because DM will cause intermodal dispatcher damage to her organs and can kill her Active or passive immunization [id number] Z23 Noncomplia nce with treatment 5781342 Z91.19 Long discussion that diabetes can kill [facility] ed DM can cause issues with eyes, kidneys, hearts, stroke, neuropathy Discussed she needs to make her appointmen ts and f/u as directed and needs to change her eating habits as we have discussed in the past Depressive disorder 6416 1313 F32.9 Patient advised to make counseling appointmen t today - given numer to Vivien Santana: x 1130 Advised any SI/HI to go directly to the ER Patient does not want to begin medication at this time Hyperlipidemia 21800133 E78.5 Will restart Body mass index 25-29 - overweight 034081570 Z68.25 Advised 30 minutes of exercise 5 days/week Advised to not drink her calories Advised 3 balanced meals/day with plenty of fruits and vegetables [id number] MD Claire Coronado (Adult Med) [address] [place] [address] 10/22/2017 10:52:53 10/22/2017 15:20:54 Uncontrolled type 2 diabetes mellitus [id number] E11.65 last a1c: 12.0 - has been without medication for 3+ months and has been lost to f/u for 6 monthsWill restart medication at this time: Levemir 25 units qPM and metformin 1000mg BID - Advised that the goal for her is FBS <140 every morning - if she is not close to there, advised to increase her insulin 2 units qPM to a max of 40 units nightly Patient advised she needs to stop eating tortillas, rice, orange juice Long discussion about diet Advised DASH diet Advised that her DM can kill her if she does not get this under control, which she states that she knows Check BS BID: once fasting and once 2 hours postprandi al - given handout with written instructio ns and blood sugar log Will refer to endo at this time as well if possible Noncomplia nce with treatment 9290804 Z91.19 Long discussion that diabetes can kill herDiscuss ed DM can cause issues with eyes, kidneys, hearts, stroke, neuropathy Discussed she needs to make her appointmen ts and f/u as directed and needs to change her eating habits as we have discussed in the past Advised that I cannot help her if she does not make it to appointmen ts and does not have her medication Will not do short acting insulin at this time because with her hx/o noncomplia nce I am afraid that she will bottom out - will begin to address if she begins to make it to f/u appointmen t Hypertriglyceridemia 302 054552 E78.2 Restart atorvastat in 40mg qPM [id number] MD Claire Coronado (Adult Med) [address] [place] [address] 11/26/2017 15:35:21 11/26/2017 16:35:38 Uncontrolled type 2 diabetes mellitus 836014573 E11.65 last a1c: 11.5 today in officeIncr ease Levemir to 50 units qPM and do tradjenta 5mg QD Advised that the goal for her is FBS <120 every morning - < 200 2 hours post prandial Patient advised she needs to stop eating tortillas, rice, orange juice Long discussion about diet Advised DASH diet Advised that her DM can kill her if she does not get this under control, which she states that she knows Check BS BID: once fasting and once 2 hours postprandi al - given handout with written instructio ns and blood sugar log Has an endo appointmen t on 12/19/17 - will let endo adjust meds accordingl y and discuss doing short acting insulin Noncomplia nce with treatment 6483981 Z91.19 Long discussion that diabetes can kill herDiscuss ed DM can cause issues with eyes, kidneys, hearts, stroke, neuropathy Discussed she needs to make her appointmen ts and f/u as directed and needs to change her eating habits as we have discussed in the past Advised that I cannot help her if she does not make it to appointmen ts and does not have her medication Will not do short acting insulin at this time because with her hx/o noncomplia nce I am afraid that she will bottom out - will begin to address if she begins to make it to f/u appointmen t Hypertriglyceridemia 302 096087 E78.2 Restart atorvastat in 40mg qPM Body mass index 25-29 - overweight 450300122 Z68.25 Advised 30 minutes of exercise 5 days/week Advised to not drink her calories Advised 3 balanced meals/day with plenty of fruits and vegetables Depressive disorder 7565 3646 F32.9 Advised any SI/HI to go directly to the ER Patient does not want to begin medication at this time [id number] MARTHA Carpenter (Adult Med) [address] [place] [address] 01/24/2018 08:39:27 01/28/2018 10:49:35 Uncontrolled type 2 diabetes mellitus 924432384 E11.65 last a1c: 11.5 - now followed by Cas sanders to 50 units qPM, tradjenta 5mg QD, metformin 500mg ER (rx by endo) Advised that the goal for her is FBS <120 every morning - < 200 2 hours post prandial Patient advised she needs to stop eating tortillas, rice, orange juice Long discussion about diet Advised DASH diet Advised that her DM can kill her if she does not get this under control, which she states that she knows Continue to follow with endo and they will take over all meds Active or passive immunization 993724300 Z23 Body mass index 25-29 - overweight 573203453 Z68.25 Advised 30 minutes of exercise 5 days/week Advised to not drink her calories Advised 3 balanced meals/day with plenty of fruits and vegetables Hypertriglyceridemia 302 937534 E78.2 atorvastat in 40mg qPM [id number] Maria Esther Griffiths MD [facility] (Adult Med) [address] [place] [address] 08/30/2018 11:54:16 09/02/2018 10:14:35 Headache 47712091 R51 Patient instructed to lower stress, excercise 5 day a week for 30 min. deep breathing technique. Uncontroll ed type 2 diabetes mellitus 210954368 E11.65 Body mass index 25-29 - overweight 429360196 Z68.25 discussed good diet and exercise. make good food/snack choices. decrease sugared beverage intake. Hypertriglyceridemia 302 746246 E78.2 [id number] [facility] [address] [place] [address] 10/07/2019 14:27:55 10/10/2019 09:32:41 Uncontrolled type 2 diabetes mellitus 431015839 E11.65 Patient with uncontroll ed DM presents to establish. A1C 12.7. - start insulin 20 units qhs- start metformin 2 pills bid- f/u in one month- start lisinopril as there is protein in urine- start atorvastat in again- check sugars daily; goal fasting <130 and 1-2 hours after meal <180. call office if sugars falling under 70. Patient aware of hypoglycem ia symptoms. - discussed diet: avoid sugars, pasta, tortillas, bread, rice, potatoes - Excercise 30 min 5x week - diabetic eye exam - foot exam at next visit Screening mammography 24 627995 Z12.31 patient given order [id number] Sasha Carlson MD [facility] [address] [place] [address] 12/01/2019 16:03:19 12/02/2019 11:35:38 Dry skin dermatitis 788439919 L85.3 patient has bilateral dry skin x week - cerave,aqu aphor, aveeno, or cetaphil CREAM -apply bid-qid- apply vaseline after and wear socks to help keep moisture in- if this does not work patient is to apply triamcinol one but avoid areas that are open. Patient instructed on how to use this- f/u if no improvemen t [id number] NICOLE ZHANG [facility] [address] [place] [address] 12/08/2019 09:40:11 12/09/2019 10:36:47 Uncontrolled type 2 diabetes mellitus 754939648 E11.65 Patient with uncontroll ed DM presents to establish. A1C 12.7. - labs- continue insulin 25 units qhs- continue metformin 500 mg tid (she could not tolerate 100mg bid)- f/u in one month- continue lisinopril - continue atorvastat in again - check sugars daily; goal fasting <130 and 1-2 hours after meal <180. call office if sugars falling under 70. Patient aware of hypoglycem ia symptoms. - discussed diet: avoid sugars, pasta, tortillas, bread, rice, potatoes - Excercise 30 min 5x week - diabetic eye exam - foot exam at next visit [id number] NICOLE ZHANG [facility] [address] [place] [address] 01/08/2020 09:19:29 01/09/2020 06:30:29 Complaining of a rash 268543378 R21 Patient states she has similar rash on hands as on feet (which have improved with steroid cream). She has dry skin in general. Has not tried anything to make it better, rash is no painful, itchy, weeping, papular. She describes it as little dry patches on hands but have also started appearing on her body after increasing insulin. I will need to see patient in person. I will send to dermatolog y. Will try same steroid on hands and will f/u in person. Watery eye 713140848 H04 .209 patient complains of itchy water eyeys. She ahs been using drops and benadryl with relief. Will try loratadine alone and see if it control her symptoms. [id number] NICOLE ZHANG [facility] [address] [place] [address] 09/24/2020 10:30:05 09/27/2020 12:00:55 Pain of left shoulder joint [id number] [id number] M25.512 left shoulder pain x 3 months. Started when she fell in [place] and is now hurting daily. Hurts to lay on it at night. Decreased ROM. Not taking any medication - heat/ice- discussed excercise to do at home- xray on arm- start ibuprofen on schedule 400 mg q8 hours x 2 weeks- may require PT- F/U 2-3 WEEKS Uncontroll ed type 2 diabetes mellitus 009448013 E11.65 Patient with uncontroll ed DM presents to establish. A1C 11.4. - labs- continue insulin 25 units qhs- continue metformin 500 mg tid (she could not tolerate 100mg bid)- f/u in one month- continue lisinopril - continue atorvastat in again - check sugars daily; goal fasting <130 and 1-2 hours after meal <180. call office if sugars falling under 70. Patient aware of hypoglycem ia symptoms. - discussed diet: avoid sugars, pasta, tortillas, bread, rice, potatoes - Excercise 30 min 5x week - diabetic eye exam - foot exam at next visit Epigastric pain 93766059 R10.13 Patient having worsening epigastric pain. occasional nausea. [id number] NICOLE ZHANG [facility] [address] [place] [address] 11/29/2020 16:20:48 11/29/2020 17:38:56 Pain of left shoulder joint 6106099905 [id number] M25.512 left shoulder pain x 3 months. Started when she fell in [place] and is now hurting daily. Hurts to lay on it at night. Decreased ROM. Not taking any medication - heat/ice - discussed exercise to do at home - xray on arm - start ibuprofen on schedule 400 mg q8 hours x 2 weeks - may require PT - F/U 2-3 WEEKS Uncontroll ed type 2 diabetes mellitus 494501270 E11.65 Patient with uncontroll ed DM presents to establish. A1C 11.4. she has not taken metformin. She has only been injecting 20 despite increasing at last visit. she never picked up victoza. - labs - continue insulin 25 units qhs - continue metformin 500 mg tid (she could not tolerate 100mg bid) - f/u in one month - continue lisinopril - continue atorvastat in again - check sugars daily; goal fasting <130 and 1-2 hours after meal <180. call office if sugars falling under 70. Patient aware of hypoglycem ia symptoms. - discussed diet: avoid sugars, pasta, tortillas, bread, rice, potatoes - exercise 30 min 5x week - diabetic eye exam - foot exam at next visit Gastroesop hageal reflux disease 012942001 K21.9 [id number] NICOLE ZHANG [facility] [address] [place] [address] 10/03/2021 16:34:49 10/06/2021 09:00:16 Dysuria 43756262 R30.9 + UAnegative flank painabx sent outER if pain wrosens of develops fever, chills Uncontroll ed type 2 diabetes mellitus 099772971 E11.65 Patient with uncontroll ed DM and non-adhere nce to medication . A1C 11.4. she recently started her victoza after not taking for months. she was not taking insulin. glucose ranged 190-270. obtining labs. f/u scheduled in one month for foot exam. - labs - continue insulin 25 units qhs - continue metformin 500 mg tid (she could not tolerate 100mg bid) - f/u in one month - continue lisinopril - continue atorvastat in again - check sugars daily; goal fasting <130 and 1-2 hours after meal <180. call office if sugars falling under 70. Patient aware of hypoglycem ia symptoms. - discussed diet: avoid sugars, pasta, tortillas, bread, rice, potatoes - exercise 30 min 5x week - diabetic eye exam - foot exam at next visit Pain of le ft shoulder joint 1409683765 0617908 M25.512 left shoulder pain x 9 months. Started when she fell in [place] and is now hurting daily. Hurts to lay on it at night. Decreased ROM. Not taking any medication - heat/ice - discussed exercise to do at home - xray normal - PT - F/U 2-3 WEEKS Depressive disorder 9388 9240 F32.A decreased sleep, low mood, anhedonia, not sleeping well but staying in bed more, trouble with relationsh ip, crying episodes, non-adhere nce to DM medication s - start sertraline - advised counseling -Patient was educated on his prescribed medication s, rationale for medication s, dosing indication s, adverse reactions, black box warning, dosing indication s, SE (e.g., decreased libido, weight gain, gynecomast ia, and galactorrh ea) and the risks and benefits. -Call center with questions/ concerns. Go to ER or call 911 for crisis (e.g., suicidal behaviors, suicidal ideations, intent or plan emerge). Additional ly, patient has suicide hotline #. - f/u one month - call with questions Adult heal th examination [id number] Z00.00 scheduled for labsdue for mammogramd ue for colonoscop y Screening for malignant neoplasm of colon 922766371 Z12.11 [id number] NICOLE ZHANG [facility] [address] [place] [address] 10/05/2021 09:21:28 10/06/2021 09:06:34 [id number] NICOLE ZHANG [facility] [address] [place] [address] 10/28/2021 16:21:15 10/31/2021 10:27:50 Dysuria 48886177 R30.9 + UAnegative flank painabx sent outER if pain wrosens of develops fever, chills Uncontroll ed type 2 diabetes mellitus 688936996 E11.65 Patient with uncontroll ed DM and non-adhere nce to medication . A1C 11.4. she recently started her victoza after not taking for months. she was not taking insulin. glucose now ranges 90-200. mostly low 100's but at ngt she sees a rise in BG.. - labs - continue insulin 25 units qhs - continue metformin 500 mg tid (she could not tolerate 100mg bid) - f/u in one month - continue lisinopril - continue atorvastat in again - diabetic eye exam: given order - foot exam: done today Pain of le ft shoulder joint 8350163975 5933901 M25.512 left shoulder pain x 9 months. Started when she fell in [place] and is now hurting daily. Hurts to lay on it at night. Decreased ROM. Not taking any medication - heat/ice - discussed exercise to do at home - xray normal - PT - F/U 2-3 WEEKS Depressive disorder 3548 9009 F32.A decreased sleep, low mood, anhedonia, not sleeping well but staying in bed more, trouble with relationsh ip, crying episodes, non-adhere nce to DM medication s - start sertraline - advised counseling -Patient was educated on his prescribed medication s, rationale for medication s, dosing indication s, adverse reactions, black box warning, dosing indication s, SE (e.g., decreased libido, weight gain, gynecomast ia, and galactorrh ea) and the risks and benefits. -Call center with questions/ concerns. Go to ER or call 911 for crisis (e.g., suicidal behaviors, suicidal ideations, intent or plan emerge). Additional ly, patient has suicide hotline #. - f/u one month - call with questions Watery eye [id number] H04 .209 patient complains of itchy water eyes. She has been using drops and benadryl with relief. Will try loratadine alone and see if it control her symptoms. Overweight 590348519 E66 .3 [id number] NICOLE ZHANG [facility] [address] [place] [address] 11/04/2021 15:41:31 11/08/2021 14:32:47 Acute urinary tract infection 313471132 N39.0 patient advised to return to ER as ab course not helping and symptoms are wrosening and has developed chills and fever. Patient agrees and will return today. [id number] NICOLE ZHANG [facility] [address] [place] [address] 11/24/2021 14:33:22 11/25/2021 09:53:33 Uncontrolled type 2 diabetes mellitus 067765943 E11.65 Patient has has improved BG running 90-120. not taking metformin. is taking insulin 25 units and victoza. okay to stop metformin. repeat A1C one month. sending to eye appointmen t. - labs - continue insulin 25 units qhs, victoza 1.8 mg - statin: atorvastat in 20mg qhs - diabetic eye exam: given order - foot exam: done today Depressive disorder 1253 2687 F32.A decreased sleep, low mood, anhedonia, not sleeping well but staying in bed more, trouble with relationsh ip, crying episodes, non-adhere nce to DM medication s - start sertraline - advised counseling -Patient was educated on his prescribed medication s, rationale for medication s, dosing indication s, adverse reactions, black box warning, dosing indication s, SE (e.g., decreased libido, weight gain, gynecomast ia, and galactorrh ea) and the risks and benefits. -Call center with questions/ concerns. Go to ER or call 911 for crisis (e.g., suicidal behaviors, suicidal ideations, intent or plan emerge). Additional ly, patient has suicide hotline #. - f/u one month - call with questions Watery eye [id number] H04 .209 patient complains of itchy water eyes. She has been using drops and benadryl with relief. Will try loratadine alone and see if it control her symptoms. 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 need xray taken at [facility]. c/o of right side back pain with radiation ro right leg. . on exam R SI joint tenderness . denies red flag sx. Understand s when to return to ER. - f/u 2 weeks- may need to start PT-ICE- REST- NSAID prn Uncontroll ed type 2 diabetes mellitus 464956070 E11.65 Patient has has improved BG running 90-120. not taking metformin. is taking insulin 25 units and victoza. ADDING JARDIANCEA 1C: 9.9 (02/2022), 12.5 (09/2021)- ppsv23: given 01/24/2018 - continue insulin 25 units qhs, victoza 1.8 mg, adding jardiance - statin: atorvastat in 20mg qhs - diabetic eye exam: abnormal, results in chart - foot exam: normal 01/2022 Overweight 360809078 E66 .3 [id number] Artur perez MD [facility] [address] [place] [address] 08/24/2022 15:56:34 08/31/2022 09:04:24 Dysphagia 61320488 R13.10 x1 moworse with cold fluids and hard/dry foodsno odynophagi a or concerning symptomsPE x- nlordered XR esophagram Overweight 712769800 E66 .3 Depression screening 171 847780 Z13.31 PHQ 0 [id number] NICOLE ZHANG [facility] [address] [facility] [place] [address] 11/22/2022 11:16:43 11/22/2022 12:24:29 Uncontrolled type 2 diabetes mellitus 323079325 E11.65 Patient has has improved BG running 90-120. not taking metformin. is taking tuebkss66 units.. missing doses 1 week. will increase today to 34. A1C: 13.8 (10/2022) 9.9 (02/2022), 12.5 (09/2021) ppsv23: prevnar 20 11/22/2022 statin: atorvastat in 20mg qhs, has not been taking diabetic eye exam: abnormal, results in chart foot exam: normal 10/2022 Overweight 465986610 E66 .3 Screening mammography 24 348881 Z12.31 patient given order Screening for malignant neoplasm of colon 879972317 Z12.11 due for screening Microalbum inuric diabetic nephropathy 861307919 E11.21 screen Administra tion of pneumococcal vaccine 09127044 Z23 givent daryl [id number] NICOLE ZHANG [facility] [address] [place] [address] 12/19/2022 14:15:00 12/20/2022 11:53:19 Screening mammography 33571632 Z12.31 patient given order Gynecologi c examination 32312545 Z01.419 Patient with hx of HSIL and HPV + with loss of f/uon exam there is lesion 12oclock of abnormal looking cells/eryt hemagiven number for obgyn f/upap obtained and will call with resultsCBE performed, normalmamm ogram given to patient [id number] MD Claire Soliman (Adult Med) [address] [place] [address] 01/22/2023 15:18:11 01/29/2023 16:12:07 Abnormal cervical Papanicolaou smear 616745301 R87.619 positive HPV on recent PAP and positive HPV in 2015. Will refer to Nurse Practition er for further evaluation to see if she needs colposcopy . [id number] [facility] ([facility]) [address] [place] [address] 02/01/2023 11:55:19 02/05/2023 13:15:23 Human papilloma virus infection 708989764 B97.7 Pap in 2009 NILM/HPV positivePa p in 2011 HSIL/HPV positive (did not have any follow up or treatment) Pap in 2014 NILM/HPV negativePa p in 2015 NILM/HPV positivePa p in 2022 NILM/HPV positive-C olposcopy performed today as detailed in the procedure note. Will follow up with results. [id number] DO [facility] [address] [place] [address] 03/06/2023 15:58:12 03/07/2023 12:27:37 Screening for malignant neoplasm of colon 812090025 Z12.11 First colonoscop y. 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 Needs all refills. She understand s to go to ER if has cp, sob, worst [place] of life or weakness. We disucssed renal damage, strokes, SD, , neuropathy etc. A1C: 14% (01/2024) 13.8 (10/2022) 9.9 (02/2022), 12.5 (09/2021) ppsv23: prevnar 20 11/22/2022 statin: atorvastat in 20mg qhs, has not been taking diabetic eye exam: abnormal, results in chart. needs f/u. foot exam: normal 01/2024 Overweight 891379938 E66 .3 BMI now normal. weight loss likely from uncontroll ed DMobtain all labs todayshe does not want to go to hospital Screening mammography 24 310101 Z12.31 patient given order Retinopath y due to diabetes mellitus 7880904 E11.3293 has not followed up with Dr Kan [id number] Ismael Penn MD [facility] [address] [place] [address] 04/16/2024 15:34:00 04/17/2024 12:48:13 Uncontrolled type 2 diabetes mellitus 472336526 E11.65 injecting 40 units of insulin and will increase by 2-4 units over next week. Continue checking BG at home. Goal is never >200. She denies A1C: 9.3% (03/2024) 14% (01/2024) 13.8 (10/2022) 9.9 (02/2022), 12.5 (09/2021) ppsv23: prevnar 20 11/22/2022 statin: atorvastat in 20mg qhs, has not been taking diabetic eye exam: abnormal, results in chart. needs f/u. foot exam: normal 01/2024 [id number] Ismael Penn MD [facility] [address] [facility] [place] [place] [address] 07/15/2024 15:43:44 07/15/2024 16:37:47 Uncontrolled type 2 diabetes mellitus [id number] E11.65 injecting 40 units of insulin and will increase by 2-4 units over next week. Continue checking BG at home. Goal is never >200. She denies cp, sob. advised ER if develops these sx. A1C: 9.9% (06/2024) 9.3% (03/2024) 14% (01/2024) 13.8 (10/2022) 9.9 (02/2022), 12.5 (09/2021) ppsv23: prevnar 20 11/22/2022 statin: atorvastat in 20mg qhs, has not been taking diabetic eye exam: abnormal, results in chart. needs f/u. foot exam: normal 01/2024 Pain of ri ght shoulder joint [id number] M25.511 c/o of R shoulder pain- xraystart PT Heart murmur [id number] R0 1.1 new heart murmur on examsend to cardiology [id number] Ismael Penn MD [facility] [address] [facility] [place] [address] 09/30/2024 08:59:56 09/30/2024 09:54:27 Uncontrolled type 2 diabetes mellitus [id number] E11.65 patient with uncontroll ed BG and out of insulin for one month. will call in her medication and patient was advised to seek new provider as she is unhappy. A1C: 11.2 (09/2024) 9.9% (06/2024) 9.3% (03/2024) 14% (01/2024) 13.8 (10/2022) 9.9 (02/2022), 12.5 (09/2021) ppsv23: prevnar 20 11/22/2022 statin: atorvastat in 20mg qhs, has not been taking diabetic eye exam: abnormal, results in chart. needs f/u. foot exam: normal 01/2024 Overweight [id number] E66 .3 BMI now normal. weight loss likely from uncontroll ed DMobtain all labs todayshe does not want to go to hospital [id number] Gabino Kam MD [facility] ([facility]) [address] [place] [address] 01/27/2025 13:49:05 01/28/2025 14:42:34 Ladle Liner needed [id number] Z75.8 [id number] Darrel is the the Slovenian speaking interprete r. Insulin tr eated type 2 diabetes mellitus [id number] E11.69 Z79.4 [id number] Last A1C:11.2Go al A1C less than:7.0%C urrent Therapy:St atin:AUBREY/A RB:Foot Exam:Nephr opathy Screening: Pneumovax 23:Eye Exam: FIB-4 Score: Referral to GI Yes NoPatient Education: healthy diet:exerc ise:weight loss:foot care:compl ications of uncontroll ed diabetes:m edication compliance :Next Visit: Obese class I [id number] E66.543 [id number] Pt to begin to engage in the following: -Healthy sleep hygiene (phone put away at night, lights out, set bedtime with at least 8 hours sleep)-Exe rcise 30-60 min daily-Make healthy diet choices (Mediterra bernard)-Drin k only water or green tea Health Concerns Section Related Observation LastModified by Organization Detai ls LastModified Time None Recorded Concern Status LastModified by Organization Details LastModified Time None Recorded Advance Directives Directive N: Payers Insurance Date Sequence Insurance Name Policy Number Policy Duenas Covered Member ID Duenas Member ID Guarantor Name 08/16/2018 SLIDING FEE SCHEDULE - DISCOUNT Meron Porter 11/29/2020 SLIDING FEE SCHEDULE - DISCOUNT Meron Porter 11/29/2021 SLIDING FEE SCHEDULE - DISCOUNT Meron Porter 02/17/2020 SLIDING FEE SCHEDULE - DISCOUNT Meron Porter 10/07/2019 SLIDING FEE SCHEDULE - DISCOUNT Meron Porter 01/08/2020 SLIDING FEE SCHEDULE - DISCOUNT Meron Porter 01/27/2025 [facility] - DOS ON OR AFTER 21 (MEDICAID REPLACEMENT - HMO) Meron Mackay ntia [id number] Meron Porter 02/27/2024 [facility] (O) Meron Porter [id number] Meron Porter 02/27/2024 [facility] (HMO) [id number] Meron Porter [id number] Meron Porter 11/22/2022 SLIDING FEE SCHEDULE - DISCOUNT Meron Porter 11/04/2021 SLIDING FEE SCHEDULE - DISCOUNT Meron Porter 01/04/2016 SLIDING FEE SCHEDULE - DISCOUNT Meron Porter 01/04/2016 SLIDING FEE SCHEDULE - DISCOUNT Meron Porter 02/27/2024 [facility] Meron Porter [id number] Meron Porter 11/30/2015 1 *SELF PAY* Va hemant Porter 12/21/2016 SLIDING FEE SCHEDULE - DISCOUNT Meron Porter 08/24/2022 1 *SELF PAY* Va hemant Porter 01/27/2025 1 *SELF PAY* Va hemant Porter 01/27/2025 SLIDING FEE SCHEDULE - DISCOUNT Meron Porter 01/24/2018 SLIDING FEE SCHEDULE - DISCOUNT Meron Porter 01/27/2025 1 [place] [facility] [facility] Meron Mackay ntia [id number] Meron Porter Notes Date Note Type Note Provider Name and Address Organization Details Recorded Time 02/27/2024 text/html ROS as noted in the HPI Patient presents for hospital f/u on DM and wellness Meron has poor compliance with diet, f/u visits. taking 30 units insulin most days (forgets 1-2x per week) and gas been out for over one month and did not notify the office. She states she lost insurance for a month but has it again.. ran out of sglt2. glucose >200 for the last 6 months and has not called office. She has pain in feet when standing too long. denies cp, sob, worst headache of her life. NICOLE ZHANG Attn: Accounting,[address] [facility], [place], [address], [facility] 02/27/2024 20:46:15 04/16/2024 text/html ROS as noted in the HPI Meron is here for f/u on DM Since last visit she checks her glucose 3-4x per day. morning she runs in the low 105-110 and afternoon around 3-4pm she has reading in low 200's but did have two readings in the 280's. She is feeling better and using 40 units of insulin and taking farxiga daily. denies cp, sob, worst headache of her life. She got more eye injections at [facility] last week for retinopathy. My doctors told me my eyes are looking so much better, they were impressed. NICOLE ZHANG Attn: Accounting,[address] [facility], [place], [address], [facility] 04/17/2024 09:06:03 07/15/2024 text/html ROS as noted in the HPI Meron is here for f/u on DM Since last visit she stopped checking her glucose as much and no longer following diet. c/o R shoulder pain today. She got more eye injections at [facility] last week for retinopathy. NICOLE ZHANG Attn: Accounting,[address] [facility], [place], [address], [facility] 08/11/2024 19:34:10 09/30/2024 text/html patient very angry because she states she called and her insulin was not called in despite it being called in on 09/23/24. She states she has been out of her insulin for a few weeks.She states she then left a vm on out phone and no one called her back. She was supposed to bring in her BG log and never did. you took off work to get while you patients are dying. when asked why didn't being in her BG log, Why does it matter you don't do anything. NICOLE ZHANG Attn: Accounting,[address] [facility], [place], [address], [facility] 09/30/2024 09:51:52 01/27/2025 text/html ROS as noted in the HPI The patient presents to the office today to establish care. She has a hx of DM2 and obesity. She stated that she has been having issues remaining well controlled. She endorses a diet high in starches and carbs. CAROLYN POTTER NP Attn: Accounting,[address] [facility], [place], [address], [facility] 01/27/2025 15:27:21 OBGyn Episode No OBEpisode recorded.
--- OUTSIDE RECORDS SUMMARY | 2025-06-23 16:05 | XMS_ITS | Encounter Summary ---
Author Organization [facility] Health Address [address] [place] [address] Care Team Providers Care Salad Counter Attendant Name Role Phone Unknown, Provider Primary Care Provider Unavaila ble Encounter Details Date Type Department Care Team (Late st Contact Info) Description 03/10/2024 Ophth Exam [facility] - Ophthalmology [address] [place] [address] Gabino Haines MD [address] [place] [address] Social History Tobacco Use Types Packs/Day Years [...] on file Sexual Orientation Not on file documented as of this encounter Functional Status documented as of this encounter Plan of Treatment Not on file documented as of this encounter Visit Diagnoses Not on filedocumented in this encounter Care Teams Salad Counter Attendant Relationship Specialty Start Date End Date Unknown, Provider PCP - General 12/19/17 documented as of this encounter
[2025-06-23 16:08] VITALS: BP 129/61; PULSE 68; RESP 20; O2SAT 98
[2025-06-23 16:10] VITALS: PULSE 68
[2025-06-23 16:16] VITALS: BP 134/62; PULSE 68; RESP 12; O2SAT 99
--- OUTSIDE RECORDS SUMMARY | 2025-06-23 16:30 | XMS_ITS | Encounter Summary ---
Author Organization [facility] Health Address [address] [facility] [place] [address] Care Team Providers Care Teller Manager Name Role Phone Unknown, Provider Primary Care Provider Unavaila ble Encounter Details Date Type Department Care Team (Late st Contact Info) Description 03/10/2024 Ophth Exam [facility] - Ophthalmology [address] [place] [address] Gabino Haines MD [address] [place] [address] Social History Tobacco Use Types Packs/Day Years [...] on filedocumented in this encounter Care Teams Teller Manager Relationship Specialty Start Date End Date Unknown, Provider PCP - General 12/19/17 documented as of this encounter
--- OUTSIDE RECORDS SUMMARY | 2025-06-23 16:30 | XMS_ITS | Clinical Summary ---
Author Organization [facility] Address [address] [place] [address] Care Team Providers Care Central Supply Clerk Name Role Phone Unknown, Provider Primary Care Provider Unavaila ble Source Comments [facility],non-owned Affiliates and Associated Physician Practices is amultiple site organization consisting of ambulatory clinics and hospital sitesin [place], [place], [place] and [place]. This disclosure is being madepursuant to the Care Everywhere program and may not contain all information available regarding this patient. Last updated 18.[facility] Allergies No known active allergies Medications * Be aware that medications may not be up to date on this document. Alwaysverify current medications with the patient. atorvastatin (LIPITOR) 40 MG tabletIndicati ons:Type 2 diabetes mellitus with hyperglycemia, with long-term current use of insulin ([facility]) Take 1 (one) tablet by mouth once daily Active metFORMIN ER 24hr (GLUCOPHAGE XR) 500MG tabletIndicati ons:Type 2 diabetes mellitus with hyperglycemia, with long-term current use of insulin ([facility]) Take 1 tablet by mouth twice daily, before 1 meal & at bedtime. 180 tablet 3 8 Active insulin detemir (LEVEMIR) vialIndication s:Type 2 diabetes mellitus with hyperglycemia, with long-term current use of insulin ([facility]) Inject 50 Units subcutaneously at bedtime 5 vial 3 8 Active linaGLIPtin (TRADJENTA) 5 MG tabletIndicati ons:Type 2 diabetes mellitus with hyperglycemia, with long-term current use of insulin ([facility]) Take 1 tablet by mouth once daily [...] 7 - 26 mg/dL 03/10/2024 9:06 AM [facility] Creatinine 0.55(L) 0.56 - 0.96 mg/dL 03/10/2024 9:06 AM [facility] Sodium 139 136 - 145 mmol/L 03/10/2024 9:06 AM [facility] Potassium 3.9 3.5 - 4.5 mmol/L 03/10/2024 9:06 AM [facility] Chloride 108(H) 98 - 107 mmol/L 03/10/2024 9:06 AM [facility] CO2 23 22 - 29 mmol/L 03/10/2024 9:06 AM [facility] Glucose 208(H) 70 - 115 mg/dL 03/10/2024 9:06 AM [facility] Calcium 8.8 8.4 - 10.2 mg/dL 03/10/2024 9:06 AM [facility] Protein Total 7.0 6.0 - 8.3 g/dL 03/10/2024 9:06 AM [facility] Albumin 3.6 3.4 - 5.0 g/dL 03/10/2024 9:06 AM [facility] Bilirubin Total 0.3 0.2 - 1.2 mg/dL 03/10/2024 9:06 AM [facility] Alkaline Phosphatase 99 40 - 150 U/L 03/10/2024 9:06 AM [facility] ALT 11 5 - 55 U/L 03/10/2024 9:06 AM [facility] AST 14 5 - 34 U/L 03/10/2024 9:06 AM [facility] Anion Gap 8 6 - 16 03/10/2024 9:06 AM [facility] BUN/Creatinine Ratio 35(H) 7 - 23 03/10/2024 9:06 AM [facility] Osmolality Calculated 296(H) 275 - 295 mOsm/kg 03/10/2024 9:06 AM [facility] Albumin/Globulin Ratio 1.1 1.1 - 2.3 03/10/2024 9:06 AM [facility] eGFR by CKD-EPI >90 >=90 mL/min/1.7 3 m2 03/10/2024 9:06 AM [facility] Blood BLOOD SPECIMEN / Unknown Venipuncture / Unknown 03/10/2024 8:35 AM [facility] 03/10/2024 8:41 [address] [facility] us Orlando Santiago MD LAB - CHEMISTRY ORDERABLES Fin al Result [facility] [address] [place] [address] [phone] from Last 3 Months or Most Recently Relevant to Health Maintenance Insurance [facility] Care Teams Central Supply Clerk Relationship Specialty Start Date End Date Unknown, Provider PCP - General 12/19/17
[2025-06-23 17:22] VITALS: BP 120/53; PULSE 69; RESP 15; O2SAT 99
[2025-06-23] MEDS: INSULIN HUMAN REGULAR (*BKC) 100 UNITS/ML IV PUSH (17:32)
[2025-06-23] MEDS: LACTATED RINGERS 1,000 ML 999 ML IV CONT ×2 (17:32)
[2025-06-23 17:33] LABS: Hemoglobin A1C 10.5 % (<5.7)
== END 2025-06-23 19:01 | disposition home or self-care (01) ==
PROVIDERS: Physician Assistant; Emergency Provider Emergency Medicine
DX: E11.65 Type 2 diabetes mellitus with hyperglycemia (principal); Z79.84 Long term (current) use of oral hypoglycemic drugs; Z76.0 Encounter for issue of repeat prescription
CPT/HCPCS: 36415; 70450; 71046; 80053; 81001; 82948; 83036; 85025; 87086; 93005; 96361; 96374; 99284; J1815; J7120